=== PATIENT | male | born 1945 | race Caucasian/White ===

== ENCOUNTER 2019-03-01 12:48 | Inpatient (IN) | payer MEDICARE, OTHER, SELFPAY ==
[2019-03-01] VITALS (14 sets, daily range): BP systolic 82–122; BP diastolic 57–78; PULSE 60–105; RESP 12–22; TEMP 34.4–36.4; O2SAT 94–100; BMI 18.4
--- NOTE | ~2019-03-01 | XR_ITS ---
EXAMINATION: XR chest 2V DATE: 03/01/2019 13:35 INDICATION: Weakness and fall. TECHNIQUE: frontal and lateral views of the chest were obtained. COMPARISON: Chest radiograph dated 01/03/2007 FINDINGS: The lungs remain clear with no focal airspace opacities, pulmonary edema, pleural effusion or pneumot horax. The cardiomediastinal silhouette is normal. Tortuous and atherosclerotic thoracic aorta. Moder ate thoracic spondylosis. Chronic mild anterior wedging of a few mid thoracic vertebral bodies. IMPRESSION: 1. No acute cardiopulmonary disease. Reviewed, dictated and finalized at location A. EL OPERATOR
--- NOTE | ~2019-03-01 | XR_ITS ---
EXAMINATION: XR barium swallow modified DATE: 03/04/2019 10:33 INDICATION: Dysphagia. TECHNIQUE: Modified barium esophagram was performed by myself to administered fluoroscopy, in conjun ction with speech pathologist who administered barium in varying consistencies as per speech patholog ist documentation. This was recorded on tape. A single fluoroscopic spot image was recorded. The DA P for this procedure was 1.862 Gycm2. Fluoroscopy exposure time was 3.4 minutes. FINDINGS: Oral stage: Adequate function. Pharyngeal phase: Adequate function. Laryngeal penetration: X1. Aspiration: None. Laryngeal sensitivity: Absent. IMPRESSION: One episode of laryngeal penetration. Please refer to speech pathologist findings and sp ecific feeding recommendations. Reviewed, dictated and finalized at location A. CUTTER APPRENTICE IMPRESSION: One episode of laryngeal penetration. Please refer to speech patho logist findings and specific feeding recommendations.
--- NOTE | ~2019-03-01 | CT_ITS ---
EXAMINATION: CT brain wo con INDICATION: Transient alteration of awareness COMPARISON: None TECHNIQUE: Standard unenhanced head CT. The dose-length product (DLP) was 681.00 mGy-cm. The mA was a djusted according to patient size. Iterative reconstruction technique was employed. FINDINGS: There is no acute intraparenchymal hemorrhage. No evidence of mass lesion. No evidence of a cute infarction. 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 There is moderate periventricular and subco rtical hypodensity probably related to small vessel ischemic disease. There is moderate prominence of the sulci and ventricles related to cerebral atrophy. Intracranial calcified cerebral atherosclerosi s is noted. There are no extra-axial collections. There is no mass effect or midline shift. The orbit s and soft tissues are unremarkable. The visualized sinuses and mastoid air cells are well aerated. IMPRESSION: 1. No acute intracranial abnormality. 2. Age related findings. Reviewed, dictated and finalized at location A. RONMENTAL EDUCATION SPECIALIST
--- NOTE | ~2019-03-01 | XR_ITS ---
EXAMINATION: XR fl Dobhoff insert/rad w img EXAM DATE: 03/04/2019 17:38 INDICATION: Dobbhoff tube insertion. TECHNIQUE: Fluoroscopy used during XR fl Dobhoff insert/rad w img performed by Dr. Brendan Mancilla MD. The total DAP for exam was 0.7 mGym2. FINDINGS: Dobhoff tube insertion was attempted through the left naris first, and then the right shabana s. Tip would into the airway rather than the esophagus in spite of trying different head positions, c hin down/elevated head, requesting patient to swallow while advancing at the level of the larynx. Att empts were made for about 25 minutes without success. Correlate with procedure note. IMPRESSION: Unsuccessful Dobbhoff tube insertion attempt. Reviewed, dictated and finalized at location A. STER ELECTRICAL CONTACTS
--- NOTE | ~2019-03-01 | XR_ITS ---
EXAMINATION: XR lumbar spine 2-3V, XR thoracic spine 3V DATE: 03/01/2019 13:35 INDICATION: Fall and weakness. TECHNIQUE: 1. AP, lateral and lateral swimmers views of the thoracic spine were obtained. 2. AP and lateral views of the lumbar spine and cone-down lateral view of the lumbosacral junction we re obtained. COMPARISON: CT of the chest, abdomen and pelvis dated 02/13/2017 FINDINGS: Thoracic spine: Unchanged thoracic kyphosis with chronic compression fractures with <20% anterior vertebral body heig ht loss at T7, T8 and T9. Remaining vertebral body heights are normal. Stable appearance of multileve l disc height loss throughout the thoracic spine, mild in the upper thoracic spine and moderate with moderate-sized endplate osteophytes in the lower thoracic spine. No fracture identified. Paravertebra l soft tissues and visualized lungs are unremarkable. Cardiomediastinal silhouette is normal. Lumbar spine: Unchanged 5 mm anterolisthesis L4 on L5. Vertebral body heights are normal. Mild disc height loss at L1-L2 and L3-L4, moderate disc height loss at L4-L5 and moderate to severe disc height loss at L5-S1. Severe disc height loss at L4-L5 and L5-S1 and mild to moderate disc height loss more cephalad lumba r spine. Sacral arches are intact. Mild joint space narrowing at the bilateral sacroiliac joints. No fracture identified. IMPRESSION: Mild to severe thoracolumbar spondylosis with stable appearance of a few lower thoracic mild compress ion fractures. No evident acute osseous abnormality. Reviewed, dictated and finalized at location A. ILLERY WORKER IMPRESSION: Mild to severe thoracolumbar spondylosis with stable appearance of a few lower thoracic mild compression fractures. No evident acute osseous abnormality.
--- NOTE | ~2019-03-01 | US_ITS ---
EXAMINATION: US abdomen complete EXAM DATE: 03/05/2019 15:15 INDICATION: Thrombocytopenia, elevated bilirubin. TECHNIQUE: Multiple grayscale and Doppler images of the complete abdomen were obtained (by a technolo gist who performed the scan) and subsequently reviewed. There is no prior study for comparison. FINDINGS: There is abdominal aortic ectasia, and mild aneurysmal dilation up to 3.0 cm. Visualized portion IVC is patent. The pancreas was not visualized. Notation made that portions of left liver lobe were not well-visualized. The liver has normal echogen icity and contour. There are no focal liver lesions identified. There is no evidence of intrahepat ic biliary duct dilation. Portal venous flow was seen in the hepatopedal, normal direction and has n ormal Doppler waveform. Common bile duct measures 6 mm, which is upper limits of normal normal. Gallbladder is moderately dis tended with borderline wall thickness of 2.8 mm. There is calcified cholelithiasis and echogenic debr is within the gallbladder. There is also, tail artifact, gallbladder adenomyomatosis. No pericholecys tic fluid. Technologist performing exam reports patient did not demonstrate sonographic Gao's sig n. Please note that this sign is less reliable in patients who have received pain medication. Right kidney: There is normal contour and echogenicity. It measures 9.1 x 4.3 x 4.8 centimeters. T here are no focal renal lesions identified. There is no hydronephrosis. Left kidney: There is normal contour and echogenicity. It measures 9.1 x 4.2 x 4.5 centimeters. Th ere are no focal renal lesions identified. There is no hydronephrosis. The spleen measures 10.3 centimeters and is morphologically normal. IMPRESSION: 1. 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 2. Gallbladder debris, cholelithiasis, adenomyomatosis. 3. Common bile duct upper limits of normal. 4. Mild bilateral renal atrophy. Reviewed, dictated and finalized at location A. TH MANAGEMENT CONSULTANT
--- NOTE | ~2019-03-01 | CT_ITS ---
EXAMINATION: CT cervical spine wo con DATE: 03/01/2019 13:24 INDICATION: Pain after fall TECHNIQUE: Computed tomography (CT) of the cervical spine was performed without intravenous contrast. The dose-length product (DLP) was 263.56 mGy-cm. Automated exposure control and iterative reconstruc tion technique were employed. COMPARISON: None FINDINGS: There is 1 mm retrolisthesis of C3 on C4 and 2 mm of anterolisthesis of C7 on T1. There are near complete loss of intervertebral disc space height at C5-6 and C6-7 and moderate loss of disc sp jorden height at C3-4 and C7-T1. The odontoid is intact. There is severe multilevel facet and uncoverteb ral joint osteoarthritis. IMPRESSION: 1. Severe cervical spondylosis without acute findings. Reviewed, dictated and finalized at location A. WARE SECURITY ARCHITECT
--- NOTE | ~2019-03-01 | XR_ITS ---
EXAMINATION: XR pelvis 1-2V DATE: 03/01/2019 13:35 INDICATION: Fall. Found down and unresponsive. TECHNIQUE: An anteroposterior view of the pelvis was obtained. COMPARISON: None. FINDINGS: Alignment is normal. No fracture. Mild left hip osteoarthritis. Right hip joint space appears relativ sita preserved. Severe lower lumbar facet osteoarthritis. Sacral arches appear intact. IMPRESSION: 1. Degenerative skeletal changes most severe at the lower lumbar facet joints. No acute osseous abnor malities. Reviewed, dictated and finalized at location A. LEY OPERATOR IMPRESSION: 1. Degenerative skeletal changes most severe at the lower lumbar facet joints. No acute osseous abnormalities.
--- NOTE | ~2019-03-01 | XR_ITS ---
EXAMINATION: XR abdomen NG/feed tube insert INDICATION: Nasogastric tube placement TECHNIQUE: Portable AP KUB-NG at 1239 hours COMPARISON: None available FINDINGS: There is a partially imaged nasogastric tube which appears to coil in the pharynx. A small amount of enteric contrast material is seen in the stomach from earlier modified esophagram. The lung s are clear. The bowel gas pattern is normal. Severe thoracic spondylosis is noted. IMPRESSION: 1. Nasogastric tube coiling in the pharynx. Reviewed, dictated and finalized at location A. GEMENT ASSISTANT
--- NOTE | 2019-03-01 12:56 | ED.WEAKNESS ---
HPI - Weakness General Chief complaint: Weakness Stated complaint: weakness Time Seen by Provider: 03/01/19 12:56 Source: patient and EMS Mode of arrival: EMS Limitations: no limitations History of Present Illness HPI Narrative: A 73 y/o male presents to the ED, via EMS, with c/o home alone next to bed unresponsive sternal run 24 hours been there dry blood throughout house, skin tears falls ofter last dr year ago states no PMhx Related Data Allergies Allergy/AdvReac Type Severity Reaction Status Date / Time No Known Allergies Allergy Unknown Verified 03/13/18 12:47 Course Vital Signs Vital signs: Vital Signs Pulse Rate 73 03/01/19 12:47 Respiratory Rate 22 H 03/01/19 12:47 Blood Pressure 82/57 L 03/01/19 12:47 Pulse Oximetry 100 03/01/19 12:47 Pulse Rate 73 03/01/19 12:47 Respiratory Rate 22 H 03/01/19 12:47 Blood Pressure 82/57 L 03/01/19 12:47 Pulse Oximetry 100 03/01/19 12:47
--- NOTE | 2019-03-01 12:58 | ED.FALL ---
HPI - Fall General Chief Complaint: Weakness Stated Complaint: weakness Time Seen by Provider: 03/01/19 12:56 Source: patient and EMS Mode of arrival: EMS Limitations: no limitations History of Present Illness HPI Narrative: A 73 y/o male presents to the ED, via EMS, with c/o fall. Per EMS, the police were discharged to the patients home for a welfare check today. EMS notes that on arrival the patient was found unresponsive, but was awoken with a sternal rub. Pt adds that he fell and was unable to get up, and has been on the floor for the past 24 hours. EMS reports that there was blood throughout the house and the pt has multiple skin tears that are at various stages of healing. He reports HI and weakness. Pt has been weak for the past 2 days. He denies any pain or N/V. Pt lives alone and last saw his PCP 1 year ago. He states that he has no PMHx and is not on any medication, but on review of old records, he has a PMHx of cardiac catheterization, [place], hyperlipidemia, GERD, angioplasty, and cataracts. complaint: fall Onset (ago): day(s) (1) Fall witnessed: no Place fall occurred: home Prolonged down time: yes and hour(s) (24) Location of injury: head Associated symptoms (after fall): weakness and other (HI) Related Data Allergies Allergy/AdvReac Type Severity Reaction Status Date / Time No Known Allergies Allergy Unknown Verified 03/13/18 12:47 Review of Systems Review of Systems: All systems reviewed & are unremarkable except as noted in HPI and below Cardiovascular: Cardiovascular: Denies chest pain Gastrointestinal: Gastrointestinal: Denies abdominal pain, Denies nausea and Denies vomiting Musculoskeletal: Musculoskeletal: Denies back pain, Denies myalgias, Denies arthralgias and Denies neck pain Neurologic: Reports weakness and Reports other (HI) [facility] Past Medical History Medical History (Updated 03/01/19 @ 17:38 by Brandyn Glez MD) Cataracts, bilateral GERD (gastroesophageal reflux disease) Heart attack Hyperlipidemia Surgical History Surgical History (Updated 03/01/19 @ 13:28 by Sheree Becerra) History of angioplasty History of cardiac catheterization History of cataract surgery Social History Social History (Updated 03/01/19 @ 13:28 by Sheree Becerra) Smoking status: Never smoker Exam Narrative: Exam Narrative: General appearance: Well-developed, malnourished, ill looking, no family member at the bedside Skin: Normal color, multiple skin tear and abrasion and bruises, cats and dogs hair attached to the wounds Head: Normocephalic, nontraumatic Eyes: Clear conjunctiva ENT: Oropharynx extremely dry l, ears normal, nose normal Neck: Supple, nontender Chest and respiratory: Airway patent, no respiratory distress, no accessory muscle use Heart: Regular rate/rhythm Abdomen: Soft, nontender, no organomegaly, quiet bowel sounds Vascular: Normal peripheral pulses, normal capillary refill. Musculoskeletal: Normal range of motion, diffuse back tenderness Neurologic: Alert and oriented ?3, STRAIGHT TRUCK DRIVER is normal as tested, no gross motor deficit Course Course Emergency Course: Improving Consultations Consultation #1: Discussed case with the APARTMENT COMMUNITY ASSISTANT MANAGER for the hospitalist, Shefali Suggs. They accept the patient. Date: 03/01/19 Time: 15:49 Vital Signs Vital signs: Vital Signs Pulse Rate 73 03/01/19 12:47 Respiratory Rate 22 H 03/01/19 12:47 Blood Pressure 82/57 L 03/01/19 12:47 Pulse Oximetry 100 03/01/19 12:47 Temperature 36.3 C L 03/01/19 15:55 Pulse Rate 67 03/01/19 16:53 Respiratory Rate 16 03/01/19 16:53 Blood Pressure 102/70 03/01/19 16:53 Pulse Oximetry 100 03/01/19 16:53 MDM - Fall MDM Narr
--- NOTE | 2019-03-01 13:00 | PC.NURSE ---
Patient given warm blankets, given bath due to fecal matter covering his legs. Patient resting in bed.
--- NOTE | 2019-03-01 13:04 | ECG_ITS ---
Measurements Intervals [place] Rate: 70 P: IA: 0 QRS: -44 QRSD: 114 T: 52 QT: 423 QTc: 459 Interpretive Statements PROBABLY SINUS RHYTHM (SIGNIFICANT BASELINE ARTIFACT) INTRAVENTRICULAR CONDUCTION DELAY EARLY PRECORDIAL R/S TRANSITION INFERIOR INFARCT, AGE INDETERMINATE BASELINE ARTIFACT- I, II, III, AVR, AVL, AVF, V1-V6 ABNORMAL ECG Electronically Signed On 03-01-2019 13:16:49 COMMUNITY HEALTH OUTREACH WORKER by Ahmet Hedrick D.O.
[2019-03-01] MEDS: SODIUM CHLORIDE 0.9% IV 1,000 ML 1000 ML (13:38)
[2019-03-01 13:41] LABS: Alveolar/Arterial O2 Gradient 21.1 mmHg; Base Excess ABG -7.6 mEq/l (+/-2.0); Fractional Inspired Oxygen 21 %; Oxygen Content ABG 15.9 %vol (16.0-22.0); Oxygen Saturation ABG 98.3 % (95.0-100.0); Oxyhemoglobin 96.5 % THb (90.0-100.0); PO2 ABG 105.3 mmHg (80.0-100.0); PO2 FiO2 Ratio Arterial Blood 5.01 %; Total Hemoglobin 11.6 g/dL (12.0-18.0); pH ABG 7.473 (7.350-7.450)
[2019-03-01 13:44] LABS: Device ROOM AIR; Modified Allen's Test Pass; PCO2 ABG 19.5 mmHg (35.0-45.0); Site Drawn RIGHT RADIAL
--- NOTE | 2019-03-01 13:47 | PCRCNOTE ---
[facility]BS DELAYED DUE TO PT IN CAT SCAN
[2019-03-01 14:14] LABS: Basophils Percent Auto 0.1 % (0.2-1.2); Hematocrit 31.4 % (42.0-52.0); Hemoglobin 11.6 g/dL (14.0-18.0); Immature Granulocyte Absolute 0.04 K/mm3 (0.00-0.031); Immature Granulocyte Percent A 0.5 % (0-0.5); Lymphocytes Absolute Auto 1.11 K/mm3 (0.9-3.2); Lymphocytes Percent Auto 14.3 % (18.3-44.2); Mean Corpuscular HGB Conc 36.9 g/dl (32-36); Mean Corpuscular Hemoglobin 34.9 pg (26-34); Mean Corpuscular Volume 94.6 fl (80-100); Mean Platelet Volume 10.4 fl (7.4-10.4); Monocytes Absolute Auto 0.6 K/mm3 (0.1-0.6); Monocytes Percent Auto 7.2 % (2.6-8.5); Neutrophils Absolute Auto 6.1 K/mm3 (1.3-6.7); Neutrophils Percent Auto 77.9 % (45.5-73.1); Nucleated Red Blood Cells Perc 0.4 % (0.0-0.2); Platelet Count Result 81 k/mm3 (150-375); Red Blood Count 3.32 M/mm3 (4.6-6.20); Red Cell Distribution Width 13.5 % (11.5-14.5); White Blood Count 7.8 K/mm3 (4.5-10.0)
[2019-03-01 14:23] LABS: INR 1.3
[2019-03-01 14:31] LABS: Alanine Aminotransferase 39 U/L (4-50); Albumin Level 4.5 g/dL (3.5-5.1); Alkaline Phosphatase 61 U/L (38-126); Aspartate Amino Transferase 111 U/L (17-59); Bilirubin,Total 3.8 mg/dL (0.2-1.3); Blood Urea Nitrogen 42 mg/dL (9-20); CRP 5.5 mg/dL (<1.0); Calcium 12.1 mg/dL (8.4-10.2); Carbon Dioxide 14 mmol/L (22-30); Chloride 104 mmol/L (98-107); Estimated Glomerular Filt Rate 39; Glucose 94 mg/dL (75-110); Potassium 3.5 mmol/L (3.4-5.0); Sodium 136 mmol/L (137-145)
[2019-03-01 14:32] LABS: Add Urine Microscopic? YES; Appearance Urine Clear (Clear); Bacteria Urine Trace /hpf; Bilirubin Urine Negative (Negative); Blood Urine 1+ (Negative); Color Urine Amber (Yellow); Glucose Urine UA Negative (Negative); Ketones Urine Negative (Negative); Leukocyte Esterase Ur Negative LEU/UL (Negative); Mucus Urine Rare /lpf; Nitrate Urine Negative (Negative); Protein Urine 1+ mg/dL (Negative); Specific Grav Ur 1.024 (1.001-1.035); WBC Urine 0-3 /hpf
[2019-03-01 14:38] LABS: Lactic Acid Reflex 2.9 mmol/L (0.7-2.1)
[2019-03-01 14:46] LABS: Creatine Kinase 2756 U/L (55-170)
[2019-03-01 15:12] LABS: Thyroid Stimulating Hormone > 100.000 uIU/mL (0.465-4.680)
--- NOTE | 2019-03-01 16:02 | PC.NURSE ---
Patient repositioned, additional warm blankets provided.
--- NOTE | 2019-03-01 17:00 | PC.NURSE ---
MD aware of patient's temperature despite warm blankets, mamie abernathy initiated.
[2019-03-01 17:26] LABS: Reflex Lactic Acid Yes or No Add Lactic
--- NOTE | 2019-03-01 18:25 | PC.NURSE ---
GARLAND Sifuentes updated on pt's core temp of 95.2 rectally. Will hold pt in ED until temp 96.5 or higher.
--- NOTE | 2019-03-01 18:48 | PC.NURSE ---
lab dept notified to draw repeat lactic acid. informed that lab will draw once in hospital room
--- NOTE | 2019-03-01 19:00 | PC.NURSE ---
report to lianne mccloud
[2019-03-01 20:08] LABS: Lactic Acid 1.5 mmol/L (0.7-2.1)
[2019-03-01] MEDS: SODIUM CHLORIDE 0.9% IV 1,000 ML 125 ML IV CONT (21:23)
--- NOTE | 2019-03-01 22:48 | ADMGEN ---
This patient, Carlos Sol, was admitted to IMU Room 232-01. Patient/family oriented to hospital policies and general routines including ID bracelet, bed and alarms, visiting hours, pain management, procedures, bathroom and other care routines, personal items, smoking policy, room service/diet, and visiting hours. Valuables list has been completed. Information on how to activate the Rapid Response Team has been discussed. Patient/Family are encouraged to report perceived risks to care and to ask questions if they do not understand what they are told or what they should do.
--- NOTE | 2019-03-01 23:29 | PM.IMHP ---
H&P: HPI History of Present Illness Chief complaint: Rhabdomyolysis, hypotension, dehydration Narrative: Carlos Sol is a 73 year old male lives home alone. The please were sent to his house for wellness check. They found the patient on the the floor of his home. They noted that there was blood all over his house and that he had multiple fractions to his arms. The patient was very confused initially when he came to the emergency room but is now starting to talk more. Patient does not recall what happened prior to today. Initially the please found that the patient was unresponsive but then woke up with a sternal rub. The patient saw his primary care doctor approximately 1 year ago. No meds were listed for his home medications. Date of service 03/01/2019. Hemoglobin is 11.6 and hematocrit 31.4.Patient's temperature was initially 35.6 and he was placed on a Teodora Hugger. His temperature is now 36.4. Blood pressure 117/75. 1.7 with a GFR of 39. Total creatinine kinase 2756. C reactive protein 5.5. TSH was greater than 100. No reflux T3 or T4 was noted. I spoke with Dr. lema who suggested we repeated. Thoracic spine, lumbar spine, pelvic x-ray, cervical spine CT all negative for fractures. Head CT was negative. IV fluids were started. Review of Systems Review of Systems: Narrative: Patient is answering some questions but is very hard of hearing. His vision is poor as well. He states he usually wears glasses but he can't see anything without home and they are not with him now. Is answering some questions but otherwise is very vague All systems reviewed & are unremarkable except as noted in HPI and below Constitutional: Constitutional: Reports as per HPI and Reports no additional constitutional complaints Comments: Very weak. Eyes: Eyes: Reports as per HPI and Reports no additional eye complaints ENT: Reports system reviewed and no additional complaints, except as documented and Reports Normal hearing present Cardiovascular: Cardiovascular: Reports no additional cardiovascular complaints Respiratory: Respiratory: Reports no additional respiratory complaints and Reports no additional respiratory complaints Gastrointestinal: Gastrointestinal: Reports as per HPI and Reports no additional gastrointestinal complaints Musculoskeletal: Musculoskeletal: Reports no additional musculoskeletal complaints Integumentary/Breasts: Skin/Breast: Reports system reviewed and no additional complaints, except as docu and Reports as per HPI Neurologic: Reports system reviewed and no additional complaints, except as documented, Reports as per HPI and Reports Normal hearing present Psychiatric: Psychiatric: Reports no additional psychiatric complaints and Reports as per HPI Endocrine: Endocrine: Reports no additional endocrine complaints Hematologic/Lymphatic: Hematologic/Lymphatic: Reports no additional hematologic/lymphatic complaints Allergic/Immunologic: Allergic/Immunologic: Reports no additional allergic/immunologic complaints [facility] Past Medical History Medical History Cataracts, bilateral GERD (gastroesophageal reflux disease) Heart attack Hyperlipidemia Surgical History Surgical History History of angioplasty History of cardiac catheterization History of cataract surgery Family History Family History (Updated 03/01/19 @ 23:38 by Shefali Suggs NP) Mother Cancer Father Liver cancer Other Unknown family medical history Social History Social History (Updated 03/01/19 @ 23:39 by Shefali Suggs NP) Social History: The patient tells me that he is a DNR. The nurse checked with the supervisor contact and service clerks who stated the patient is a DNR. The patient tells me that he retired from the [employer] in that he has 3 children. He tells me that he is has . Smoking status: Former smoker Tobacco type: cigarett
[2019-03-02] VITALS (10 sets, daily range): BP systolic 101–130; BP diastolic 55–82; PULSE 51–82; RESP 18–22; TEMP 36.1–36.6; O2SAT 94–100; BMI 18.4
[2019-03-02 05:01] LABS: Basophils Percent Auto 0.3 % (0.2-1.2); Eosinophils Percent Auto 0.5 % (0-4.4); Hematocrit 28.6 % (42.0-52.0); Hemoglobin 10.4 g/dL (14.0-18.0); Immature Granulocyte Absolute 0.02 K/mm3 (0.00-0.031); Immature Granulocyte Percent A 0.3 % (0-0.5); Immature Platelet Fraction Pct 2.5 % (0.9-11.2); Lymphocytes Absolute Auto 1.07 K/mm3 (0.9-3.2); Lymphocytes Percent Auto 17.4 % (18.3-44.2); Mean Corpuscular HGB Conc 36.4 g/dl (32-36); Mean Corpuscular Volume 96.3 fl (80-100); Mean Platelet Volume 10.8 fl (7.4-10.4); Monocytes Absolute Auto 0.3 K/mm3 (0.1-0.6); Monocytes Percent Auto 5.4 % (2.6-8.5); Neutrophils Absolute Auto 4.7 K/mm3 (1.3-6.7); Neutrophils Percent Auto 76.1 % (45.5-73.1); Nucleated Red Blood Cells Perc 0.5 % (0.0-0.2); Platelet Count Result 72 k/mm3 (150-375); Red Blood Count 2.97 M/mm3 (4.6-6.20); Red Cell Distribution Width 13.5 % (11.5-14.5); White Blood Count 6.2 K/mm3 (4.5-10.0)
[2019-03-02 05:15] LABS: Alanine Aminotransferase 37 U/L (4-50); Albumin Level 4.1 g/dL (3.5-5.1); Alkaline Phosphatase 51 U/L (38-126); Aspartate Amino Transferase 94 U/L (17-59); Bilirubin,Total 3.5 mg/dL (0.2-1.3); Blood Urea Nitrogen 42 mg/dL (9-20); Calcium 11.3 mg/dL (8.4-10.2); Carbon Dioxide 14 mmol/L (22-30); Chloride 107 mmol/L (98-107); Creatine Kinase 1405 U/L (55-170); Estimated CRCL calculation 36 ml/min; Estimated Glomerular Filt Rate 46; Glucose 78 mg/dL (75-110); Magnesium 2.2 mg/dL (1.6-2.3); Potassium 3.2 mmol/L (3.4-5.0); Sodium 136 mmol/L (137-145)
[2019-03-02] MEDS: SODIUM CHLORIDE 0.9% IV 1,000 ML 125 ML IV CONT ×3 (05:28→21:43)
[2019-03-02 06:25] LABS: Thyroid Stimulating Hormone Reflex > 100.000 uIU/mL (0.465-4.68)
[2019-03-02 06:50] LABS: Free T4 Free Thyroxine Reflex 0.12 ng/dL (0.78-2.19)
[2019-03-02 07:57] LABS: Glucose Point of Care 75 (65-105)
--- NOTE | 2019-03-02 14:23 | PCNSR ---
On 03/02/19, the student, Allie Montero, provided care and completed [facility] documentation on this patient. I have reviewed the student's documentation and agree with the findings.
--- NOTE | 2019-03-02 15:48 | PCPTNOTE ---
Attempted PT eval. Pt sleeping and unable to arouse. Will try again tomorrow.
--- NOTE | 2019-03-02 16:03 | PM.IMPN ---
Progress Note: A&P Assessment and Plan (1) Rhabdomyolysis: Qualifiers: Encounter type: subsequent encounter Rhabdomyolysis type: traumatic Qualified Code(s): T79.6XXD - Traumatic ischemia of muscle, subsequent encounter Code(s): M62.82 - Rhabdomyolysis Status: Acute Assessment and Plan: 03/02/19 16:03 Patient is 73-year-old male who lives home alone his neighbor had not seen him for a week and called police to check on him patient was found on floor confused there was some bleeding from his arm was not able to provide any review of symptom or history he was brought to the emergency department is found to have a rhabdomyolysis with elevated CK acute kidney disease and elevated TSH unfortunately patient is not able to provide any details his daughters are present who are not much in contact with the patient however his adult daughter who is the POA, patient is being hydrated will monitor CK level as well as kidney function patient will benefit from PT OT (2) Elevated TSH: Code(s): R79.89 - Other specified abnormal findings of blood chemistry Status: Acute Assessment and Plan: Patient TSH is over 100 there is no detail about his past history I have started the patient on low-dose or levothyroxine 25 mcg q.day will continue to monitor patient (3) Anemia: Code(s): D64.9 - Anemia, unspecified Status: Acute Assessment and Plan: Continue to monitor patient's H&H. (4) Adult failure to thrive: Code(s): R62.7 - Adult failure to thrive Status: Acute Assessment and Plan: Patient lives home alone and is a DNR. I will consult critical care nurse for possible placement. I will started PT OT evaluation. (5) Dehydration: Code(s): E86.0 - Dehydration Status: Acute Assessment and Plan: Patient's mucous membranes are dry. Continue with with good oral care and IV fluids. Recheck BUN and creatinine in the morning. Patient's creatinine is 1.7. Not sure where his baseline is. Patient lactic was 2 point now 1.5. (6) Hyperbilirubinemia: Code(s): E80.6 - Other disorders of bilirubin metabolism Status: Acute Assessment and Plan: To his rhabdomyolysis. Subjective Date/time seen: 03/02/19 16:03 Patient is 73-year-old male who lives home alone his neighbor had not seen him for a week and called police to check on him patient was found on floor confused there was some bleeding from his arm was not able to provide any review of symptom or history he was brought to the emergency department is found to have a rhabdomyolysis acute kidney disease and elevated TSH unfortunately patient is not able to provide any details his daughters are present who are not much in contact with the patient however his adult daughter who is the POA Review of Systems Review of Systems: ROS unobtainable: unobtainable due to mental condition Exam Narrative: Exam Narrative: Patient is elderly frail chronically ill malnourished Const: General: no acute distress and uncomfortable HENMT: General nose exam: Normal nares present Mouth: Yes moist mucous membranes Eyes: General: appearance normal, both eyes and all related structures Sclera: sclerae normal Neck: Neck: supple Resp: Other: Bilateral poor air entry with harsh breath sounds Cardio: Rate: regular rate Rhythm: regular rhythm GI: Auscultation: normal bowel sounds Skin: Other: Patient has several scabs on his arms Extrem: General: normal to inspection Psych: Other: Patient is quite confused Objective Data Vital Signs Vital Signs: Vital Signs - 24 hr 03/01/19 16:53 03/01/19 17:07 03/01/19 18:06 Temperature 94.0 F L 94.4 F L Pulse Rate 67 75 Respiratory Rate 16 22 H Blood Pressure 102/70 111/78 Pulse Oximetry 100 100 03/01/19 18:13 03/01/19 19:15 03/01/19 20:01 Temperature 95.2 F L 96.0 F L 95.9 F L Pulse Rate 64 74 Respiratory Rate 14 12 Blood Pressure 100/
[2019-03-03] VITALS: RESP 20
[2019-03-03 03:47] VITALS: BP 122/90; PULSE 78; RESP 22; TEMP 36.4; O2SAT 100
[2019-03-03 04:58] LABS: Hematocrit 28.8 % (42.0-52.0); Hemoglobin 10.4 g/dL (14.0-18.0); Immature Platelet Fraction Pct 1.7 % (0.9-11.2); Mean Corpuscular HGB Conc 36.1 g/dl (32-36); Mean Corpuscular Hemoglobin 34.9 pg (26-34); Mean Corpuscular Volume 96.6 fl (80-100); Mean Platelet Volume 10.4 fl (7.4-10.4); Platelet Count Result 64 k/mm3 (150-375); Red Blood Count 2.98 M/mm3 (4.6-6.20); Red Cell Distribution Width 13.9 % (11.5-14.5); White Blood Count 5.8 K/mm3 (4.5-10.0)
[2019-03-03 05:05] LABS: Alanine Aminotransferase 34 U/L (4-50); Albumin Level 3.9 g/dL (3.5-5.1); Alkaline Phosphatase 51 U/L (38-126); Aspartate Amino Transferase 81 U/L (17-59); Bilirubin,Total 3.6 mg/dL (0.2-1.3); Blood Urea Nitrogen 33 mg/dL (9-20); Calcium 10.7 mg/dL (8.4-10.2); Carbon Dioxide 14 mmol/L (22-30); Chloride 112 mmol/L (98-107); Creatine Kinase 870 U/L (55-170); Estimated CRCL calculation 42 ml/min; Estimated Glomerular Filt Rate 54; Glucose 77 mg/dL (75-110); Potassium 3.2 mmol/L (3.4-5.0); Sodium 139 mmol/L (137-145)
[2019-03-03] MEDS: SODIUM CHLORIDE 0.9% IV 1,000 ML 125 ML IV CONT (05:53)
[2019-03-03] MEDS: LEVOTHYROXINE SODIUM INJ 100 MCG/5 ML VIAL 12.5 MCG IV PUSH (05:53)
[2019-03-03 08:00] VITALS: BP 138/93; PULSE 68; RESP 26; TEMP 36; O2SAT 100
[2019-03-03] MEDS: DEXTROSE 50% 25 GM/50 ML SYRINGE IV PUSH (08:24)
[2019-03-03 09:24] LABS: Glucose Point of Care 83 (65-105)
[2019-03-03 10:41] VITALS: BP 101/88; PULSE 77; RESP 16; TEMP 35.5; O2SAT 89
[2019-03-03] MEDS: DEXTROSE 5%/0.9% SOD CHL 1,000 ML 125 ML IV CONT ×2 (10:45→19:24)
[2019-03-03 12:00] LABS: Glucose Point of Care 62 (65-105)
[2019-03-03 12:30] VITALS: BP 154/83; PULSE 56; RESP 22; TEMP 35.8; O2SAT 99
[2019-03-03 13:44] LABS: Glucose Point of Care 84 (65-105)
--- NOTE | 2019-03-03 15:28 | PM.IMPN ---
Progress Note: A&P Assessment and Plan (1) Rhabdomyolysis: Qualifiers: Encounter type: subsequent encounter Rhabdomyolysis type: traumatic Qualified Code(s): T79.6XXD - Traumatic ischemia of muscle, subsequent encounter Code(s): M62.82 - Rhabdomyolysis Status: Acute Assessment and Plan: Patient is 73-year-old male who lives home alone his neighbor had not seen him for a week and called police to check on him patient was found on floor confused there was some bleeding from his arm was not able to provide any review of symptom or history he was brought to the emergency department was found to have a rhabdomyolysis with elevated CK acute kidney disease and elevated TSH unfortunately patient is not able to provide any details, patient was started on low-dose levothyroxine patient is being hydrated his CK level is trending his kidney function is improving his still more awake today than he had been yesterday unable to provide any review of symptoms (2) Elevated TSH: Code(s): R79.89 - Other specified abnormal findings of blood chemistry Status: Acute Assessment and Plan: Patient TSH is over 100 there is no detail about his past history I have started the patient on low-dose or levothyroxine 25 mcg q.day will continue to monitor patient (3) Anemia: Code(s): D64.9 - Anemia, unspecified Status: Acute Assessment and Plan: Continue to monitor patient's H&H. (4) Adult failure to thrive: Code(s): R62.7 - Adult failure to thrive Status: Acute Assessment and Plan: Patient lives home alone and is a DNR. I will consult family day care worker for possible placement. I will started PT OT evaluation. (5) Dehydration: Code(s): E86.0 - Dehydration Status: Acute Assessment and Plan: Patient's mucous membranes are dry. Continue with with good oral care and IV fluids. Recheck BUN and creatinine in the morning. Patient's creatinine is 1.7. Not sure where his baseline is. Patient lactic was 2 point now 1.5. (6) Hyperbilirubinemia: Code(s): E80.6 - Other disorders of bilirubin metabolism Status: Acute Assessment and Plan: To his rhabdomyolysis. Subjective Date/time seen: 03/03/19 15:28 Patient is 73-year-old male who lives home alone his neighbor had not seen him for a week and called police to check on him patient was found on floor confused there was some bleeding from his arm was not able to provide any review of symptom or history he was brought to the emergency department was found to have a rhabdomyolysis with elevated CK acute kidney disease and elevated TSH unfortunately patient is not able to provide any details, patient was started on low-dose levothyroxine patient is being hydrated his CK level is trending his kidney function is improving his still more awake today than he had been yesterday unable to provide any review of symptoms Review of Systems Review of Systems: ROS unobtainable: unobtainable due to mental condition Exam Narrative: Exam Narrative: Patient is elderly frail chronically ill malnourished Const: General: cooperative, comfortable, no acute distress, alert, awake, Physically active, ill appearing, tired appearing and uncomfortable Nutritional Appearance: average body habitus and underweight Orientation/consciousness: oriented to person, oriented to place, oriented to time and patient oriented x3 Limitations: no limitations Other: Patient was aware that he has had [facility] HENMT: Head: normal to inspection, No palpable skull fracture present, normocephalic, atraumatic and abrasion Ears: other (Hard of hearing) General nose exam: Normal external nose present, Normal nares present and No nasal polyps present Mouth: Yes moist mucous membranes and Yes dry mucous membranes Throat: posterior oropharynx normal Eyes: General: appearance normal, both eyes and all related structures Alignment and Posit
[2019-03-03] MEDS: SILVERGEL (ELTA) 45 ML 1 APPLIC TOPICAL (16:34)
--- NOTE | 2019-03-03 17:11 | PC.NURSE ---
This patient, Carlos Sol, was received from [facility] on 03/03/19 at 1647. Personal belongings list checked and signed. Patient/family oriented to unit policies and routines. Report received from GARLAND Joy.
[2019-03-03 17:25] LABS: Glucose Point of Care 93 (65-105)
--- NOTE | 2019-03-03 17:38 | PC.NURSE ---
This patient, Carlos Sol, was transferred to [[id number] ] on 03/03/19 at 1739. Personal belongings sent with patient. Belongings list checked and signed with receiving [ ]. Report given to [ ]. Appropriate documentation sent with patient.
[2019-03-03 22:11] VITALS: BP 126/80; PULSE 72; RESP 16; TEMP 35.7; O2SAT 100
[2019-03-04 01:09] LABS: Glucose Point of Care 105 (65-105)
[2019-03-04] MEDS: DEXTROSE 5%/0.9% SOD CHL 1,000 ML 125 ML IV CONT ×2 (03:25→16:48)
[2019-03-04 05:45] LABS: Glucose Point of Care 128 (65-105)
[2019-03-04 05:49] VITALS: BP 121/78; PULSE 63; RESP 16; TEMP 35.6; O2SAT 100
[2019-03-04] MEDS: LEVOTHYROXINE SODIUM INJ 100 MCG/5 ML VIAL 12.5 MCG IV PUSH (06:16)
[2019-03-04 06:31] LABS: Alanine Aminotransferase 32 U/L (4-50); Albumin Level 3.6 g/dL (3.5-5.1); Alkaline Phosphatase 77 U/L (38-126); Aspartate Amino Transferase 71 U/L (17-59); Bilirubin,Total 3.3 mg/dL (0.2-1.3); Blood Urea Nitrogen 24 mg/dL (9-20); Calcium 10.3 mg/dL (8.4-10.2); Carbon Dioxide 10 mmol/L (22-30); Chloride 117 mmol/L (98-107); Creatine Kinase 569 U/L (55-170); Estimated CRCL calculation 53 ml/min; Estimated Glomerular Filt Rate > 60; Glucose 105 mg/dL (75-110); Potassium 2.9 mmol/L (3.4-5.0); Sodium 142 mmol/L (137-145)
[2019-03-04 07:40] LABS: Hematocrit 26.3 % (42.0-52.0); Hemoglobin 9.7 g/dL (14.0-18.0); Mean Corpuscular HGB Conc 36.9 g/dl (32-36); Mean Corpuscular Hemoglobin 34.6 pg (26-34); Mean Corpuscular Volume 93.9 fl (80-100); Mean Platelet Volume 9.7 fl (7.4-10.4); Platelet Count Result 48 k/mm3 (150-375); Red Cell Distribution Width 13.8 % (11.5-14.5); White Blood Count 10.3 K/mm3 (4.5-10.0)
[2019-03-04] MEDS: LIDOCAINE 5% PATCH 1 PATCH TRANSDERM (08:12)
--- NOTE | 2019-03-04 09:13 | PCOTNOTE ---
Refusal of OT evaluation this AM stating that he did not want to get up and did not want to do therapy. Pt encouraged to participate and educated on the benefits of getting out of bed and moving. Pt continued to refuse. Will attempt OT evaluation at later time.
--- NOTE | 2019-03-04 09:22 | PCSTNOTE ---
Please refer to the Bedside Swallow Evaluation in the EMR.
--- NOTE | 2019-03-04 10:59 | PCSTNOTE ---
Please refer to the Modified Barium Swallow Evaluation in the EMR.
--- NOTE | 2019-03-04 12:55 | PC.NURSE ---
Second [place] sump attempted to be inserted with no success. Patient not tolerating insertion and agitated. Pierre Dillon RN notified and she will make Dr. Mancilla aware.
--- NOTE | 2019-03-04 13:37 | PCDIET ---
Nutrition Follow-Up Complete: Inadequate energy intake related to no current diet order as evidenced by BMI of 18.5 (75% IBW) and medical dx of adult failure to thrive . Patient will meet nutritional needs upon advancement of diet. Goal: Diet order advanced to TF in order to meet patient's nutritional needs Nutrition recommendation: Recommend Jevity 1.2, starting at 20ml/hr, slowly increasing by 10mL/hr every 8 hours, as tolerated, in order to meet goal rate of 80ml/hr (providing 2,112kcals, 97g pro, and 1420ml free water over 22 hours/day). Agree with standard of 30ml water flushes but once goal rate met, recommend reducing IV fluids so that water flushes can be administered 100ml every 4hrs. Will monitor electrolytes closely, as patient may be at risk for refeeding, given borderline BMI and having not eaten in several days. Last recorded weight is 67 kg. Bowel Motility: none recorded Labs Reviewed:Na (142), K (2.9), Cr (1.0), Glu (105) Meds Noted: Levothyroxine, D5NS @ 125mL/hr Additional Notes: s/p KCl replacement. Failed MBS noted; enteral feedings appropriate Goal rate of 80ml, starting at 10ml Closely monitor labs and residuals, will follow up every Thursday/Thursday.
[2019-03-04 14:00] VITALS: BP 104/72; PULSE 65; RESP 16; TEMP 37; O2SAT 100
--- NOTE | 2019-03-04 14:09 | PCNSR ---
On 03/04/19, the student, Allie Montero, provided care and completed [employer] documentation on this patient. I have reviewed the student's documentation and agree with the findings.
--- NOTE | 2019-03-04 14:13 | P.CDI_ITS ---
CDI Query Clarification Request -Acute kidney disease has been documented. -03/01 BUN 42, creatinine 1.7, GFR 39 -03/04 BUN 24, creatinine 1.0, GRF >60 -Acute kidney disease codes to a nonspecific kidney disorder. Please further clarify/specify diagnosis: * Acute renal failure * Chronic renal failure * Acute on chronic renal failure * Other * Unable to determine <Riana Ley RN - Last Filed: 03/04/19 14:19>
--- NOTE | 2019-03-04 14:13 | WPDCDIQUERY2 ---
CDI Query Clarification Request -Acute kidney disease has been documented. -03/01 BUN 42, creatinine 1.7, GFR 39 -03/04 BUN 24, creatinine 1.0, GRF >60 -Acute kidney disease codes to a nonspecific kidney disorder. Please further clarify/specify diagnosis: Acute renal failure Chronic renal failure Acute on chronic renal failure Other Unable to determine <Riana Ley RN - Last Filed: 03/04/19 14:19>
--- NOTE | 2019-03-04 14:32 | PM.IMPN ---
Progress Note: A&P Assessment and Plan (1) Rhabdomyolysis: Qualifiers: Encounter type: subsequent encounter Rhabdomyolysis type: traumatic Qualified Code(s): T79.6XXD - Traumatic ischemia of muscle, subsequent encounter Code(s): M62.82 - Rhabdomyolysis Status: Acute Assessment and Plan: Patient is 73-year-old male who lives home alone his neighbor had not seen him for a week and called police to check on him patient was found on floor confused there was some bleeding from his arm was not able to provide any review of symptom or history he was brought to the emergency department was found to have a rhabdomyolysis with elevated CK acute kidney disease and elevated TSH unfortunately patient is not able to provide any details, patient was started on low-dose levothyroxine patient is being hydrated his CK level is trending his kidney function is improving his still more awake today than he had been yesterday unable to provide any review of symptoms will continue to hydrate the patient will start the patient on G-tube feeding once the NG tube is inserted. (2) Elevated TSH: Code(s): R79.89 - Other specified abnormal findings of blood chemistry Status: Acute Assessment and Plan: Patient TSH is over 100 there is no detail about his past history I have started the patient on low-dose or levothyroxine 25 mcg q.day will continue to monitor patient (3) Anemia: Code(s): D64.9 - Anemia, unspecified Status: Acute Assessment and Plan: Continue to monitor patient's H&H. (4) Adult failure to thrive: Code(s): R62.7 - Adult failure to thrive Status: Acute Assessment and Plan: Patient lives home alone and is a DNR. I will consult care team coordinator scheduler for possible placement. I will started PT OT evaluation. (5) Dehydration: Code(s): E86.0 - Dehydration Status: Acute Assessment and Plan: Patient's mucous membranes are dry. Continue with with good oral care and IV fluids. Recheck BUN and creatinine in the morning. Patient's creatinine is 1.7. Not sure where his baseline is. Patient lactic was 2 point now 1.5. (6) Hyperbilirubinemia: Code(s): E80.6 - Other disorders of bilirubin metabolism Status: Acute Assessment and Plan: To his rhabdomyolysis. Subjective Date/time seen: Patient is 73-year-old male who lives home alone his neighbor had not seen him for a week and called police to check on him patient was found on floor confused there was some bleeding from his arm was not able to provide any review of symptom or history he was brought to the emergency department was found to have a rhabdomyolysis with elevated CK acute kidney disease and elevated TSH unfortunately patient is not able to provide any details, patient was started on low-dose levothyroxine patient is being hydrated his CK level is trending his kidney function is improving his still more awake today than he had been yesterday unable to provide any review of symptoms Review of Systems Review of Systems: ROS unobtainable: unobtainable due to mental condition Exam Narrative: Exam Narrative: Elderly frail confused Const: General: comfortable and no acute distress HENMT: General nose exam: Normal nares present Mouth: Yes moist mucous membranes Eyes: General: appearance normal, both eyes and all related structures Sclera: sclerae normal Neck: Neck: supple Resp: Effort & Inspection: normal respiratory effort Auscultation: clear to auscultation bilaterally Cardio: Rate: regular rate Rhythm: regular rhythm GI: Auscultation: normal bowel sounds Skin: General skin exam: normal color and no rashes or lesions noted Neuro: Speech: normal speech Sensory Exam: normal sensation Extrem: General: normal to inspection Psych: Other: Patient is confused nonverbal Objective Data Vital Signs Vital Signs: Vital Signs - 24 hr 03/03/19 22:11 03/04/19 05:49
[2019-03-04 15:05] LABS: Glucose Point of Care 120 (65-105)
[2019-03-04 19:10] LABS: Basophils Percent Auto 0.2 % (0.2-1.2); Eosinophils Percent Auto 0.1 % (0-4.4); Hematocrit 26.7 % (42.0-52.0); Hemoglobin 9.5 g/dL (14.0-18.0); Immature Granulocyte Absolute 0.05 K/mm3 (0.00-0.031); Immature Granulocyte Percent A 0.5 % (0-0.5); Immature Platelet Fraction Pct 1.9 % (0.9-11.2); Lymphocytes Absolute Auto 0.58 K/mm3 (0.9-3.2); Lymphocytes Percent Auto 6.3 % (18.3-44.2); Mean Corpuscular HGB Conc 35.6 g/dl (32-36); Mean Corpuscular Hemoglobin 34.2 pg (26-34); Mean Platelet Volume 9.9 fl (7.4-10.4); Monocytes Absolute Auto 0.3 K/mm3 (0.1-0.6); Monocytes Percent Auto 2.8 % (2.6-8.5); Neutrophils Absolute Auto 8.3 K/mm3 (1.3-6.7); Neutrophils Percent Auto 90.1 % (45.5-73.1); Nucleated Red Blood Cells Perc 0.2 % (0.0-0.2); Platelet Count Result 47 k/mm3 (150-375); Red Blood Count 2.78 M/mm3 (4.6-6.20); Red Cell Distribution Width 14.1 % (11.5-14.5); White Blood Count 9.3 K/mm3 (4.5-10.0)
[2019-03-04 19:18] LABS: Partial Thromboplastin Time 40.4 SECONDS (22.3-36.8)
[2019-03-04 19:19] LABS: Alanine Aminotransferase 31 U/L (4-50); Albumin Level 3.4 g/dL (3.5-5.1); Alkaline Phosphatase 56 U/L (38-126); Aspartate Amino Transferase 55 U/L (17-59); Bilirubin,Total 3.5 mg/dL (0.2-1.3); Blood Urea Nitrogen 21 mg/dL (9-20); Calcium 10.4 mg/dL (8.4-10.2); Carbon Dioxide 13 mmol/L (22-30); Chloride 116 mmol/L (98-107); Estimated CRCL calculation 49 ml/min; Estimated Glomerular Filt Rate > 60; Glucose 101 mg/dL (75-110); Potassium 2.9 mmol/L (3.4-5.0); Sodium 144 mmol/L (137-145)
[2019-03-04 19:27] LABS: Transferrin 164 mg/dL (206-381)
[2019-03-04 19:30] LABS: Glucose Point of Care 98 (65-105)
[2019-03-04 22:00] VITALS: BP 116/81; PULSE 68; RESP 18; TEMP 36.8; O2SAT 100
[2019-03-04] MEDS: AMINO ACIDS 4.25%/D5W/LYTES/CA 2,000 ML 100 ML IV CONT (22:06)
[2019-03-04 23:49] LABS: Glucose Point of Care 122 (65-105)
[2019-03-05] MEDS: LEVOTHYROXINE SODIUM INJ 100 MCG/5 ML VIAL 12.5 MCG IV PUSH (05:33)
[2019-03-05 05:52] VITALS: BP 118/83; PULSE 75; RESP 16; TEMP 36.7; O2SAT 100
[2019-03-05 06:38] LABS: Hematocrit 27.8 % (42.0-52.0); Hemoglobin 9.8 g/dL (14.0-18.0); Mean Corpuscular HGB Conc 35.3 g/dl (32-36); Mean Corpuscular Hemoglobin 34.6 pg (26-34); Mean Corpuscular Volume 98.2 fl (80-100); Mean Platelet Volume 10.2 fl (7.4-10.4); Platelet Count Result 40 k/mm3 (150-375); Red Blood Count 2.83 M/mm3 (4.6-6.20); Red Cell Distribution Width 14.3 % (11.5-14.5); White Blood Count 9.3 K/mm3 (4.5-10.0)
[2019-03-05 07:04] LABS: Glucose Point of Care 106 (65-105)
[2019-03-05 07:53] LABS: Albumin Level 3.2 g/dL (3.5-5.1); Alkaline Phosphatase 45 U/L (38-126); Aspartate Amino Transferase 51 U/L (17-59); Bilirubin,Total 2.6 mg/dL (0.2-1.3); Blood Urea Nitrogen 23 mg/dL (9-20); Carbon Dioxide 13 mmol/L (22-30); Chloride 115 mmol/L (98-107); Creatine Kinase 304 U/L (55-170); Estimated CRCL calculation 66 ml/min; Estimated Glomerular Filt Rate > 60; Glucose 88 mg/dL (75-110); Phosphorus 1.9 mg/dL (2.5-4.5); Potassium 3.2 mmol/L (3.4-5.0); Sodium 142 mmol/L (137-145)
[2019-03-05 08:17] LABS: Alanine Aminotransferase 37 U/L (4-50)
[2019-03-05] MEDS: LIDOCAINE 5% PATCH 1 PATCH TRANSDERM (11:09)
--- NOTE | 2019-03-05 11:59 | WPDGICN ---
Assessment and Plan Assessment and plan (1) Dysphagia: Qualifiers: Dysphagia type: unspecified Qualified Code(s): R13.10 - Dysphagia, unspecified Code(s): R13.10 - Dysphagia, unspecified Status: Acute Assessment and Plan: probably from underlying neurological state, he is lethargic. We can always attempt to place NGT endoscopically. He won't be a candidate for G-tube because low platelets. (2) Encephalopathy: Code(s): G93.40 - Encephalopathy, unspecified Status: Acute Assessment and Plan: multifactorial from hypothyroidism, failure to thrive, dehydration, etc. 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 Will check cortisol level, management by primary (4) Rhabdomyolysis: Qualifiers: Encounter type: subsequent encounter Rhabdomyolysis type: traumatic Qualified Code(s): T79.6XXD - Traumatic ischemia of muscle, subsequent encounter Code(s): M62.82 - Rhabdomyolysis Status: Acute Assessment and Plan: improving with medical therapy (5) Thrombocytopenia: Code(s): D69.6 - Thrombocytopenia, unspecified Status: Acute Assessment and Plan: will get abdominal ultrasound to check liver/spleen, also noted elevated bili- check indirect bili to rule out hemolysis, also ldh, retic count, haptoglobulin and hepatitis panel. (6) Anemia: Qualifiers: Anemia type: unspecified type Qualified Code(s): D64.9 - Anemia, unspecified Code(s): D64.9 - Anemia, unspecified Status: Acute Assessment and Plan: no report of gib, hb ~ 10 (7) Ecchymosis: Code(s): R58 - Hemorrhage, not elsewhere classified Status: Acute (8) Dehydration: Code(s): E86.0 - Dehydration Status: Acute Assessment and Plan: renal function improved after hydration. GI Consult Note Consult date/time: 03/05/19 11:59 reason for consult: dysphagia, unable to place NGT HPI: Carlos Sol is a 73 year old male who was brought here after he was found almost unresponsive at home, no really much of history and he is still in lethargic state thus history is obtained from records. He was found to be on AR with creat 1.7 (improved), rhabdo with ck 2.7k (improving), bili 3. Also TSH >100 with low free T4, thrombocytopenia with plat 40-60, normal wbc, blood cultures no growth thus far. CT head and CXR negative. Patient is hardly responding, several attempts of NG tube placement and then DH by radiologist unsuccessful therefore I was called to see him. Speech therapist confirmed severe dysphagia. Review of Systems Review of Systems: ROS unobtainable: unobtainable due to mental status PMFSH Past Medical History Medical History Cataracts, bilateral GERD (gastroesophageal reflux disease) Heart attack Hyperlipidemia Surgical History Surgical History History of angioplasty History of cardiac catheterization History of cataract surgery Family History Family History (Updated 03/01/19 @ 23:38 by Shefali Suggs NP) Mother Cancer Father Liver cancer Other Unknown family medical history Social History Social History (Updated 03/01/19 @ 23:39 by Shefali Suggs NP) Social History: The patient tells me that he is a DNR. The nurse checked with the building supplies salesperson retail who stated the patient is a DNR. The patient tells me that he retired from the [employer] in that he has 3 children. He tells me that he is has . Smoking status: Former smoker Tobacco type: cigarettes Second hand tobacco smoke exposure: No Alcohol intake: never Substance use: never Substance use type: does not use Living arrangements: alone Occupation/Education: retired Gender identity (if verbal
[2019-03-05 13:25] LABS: Immature Reticulocyte Fraction 10.8 % (3.0-15.9); Reticulocyte Hemoglobin Conten 33.5 pg (28.2-35.7); Reticulocyte Percent 1.25 % (0.7-4.3); Reticulocytes Absolute 0.03 B/L (32.2-175.7)
[2019-03-05 13:32] LABS: Bilirubin Indirect 2.1 mg/dL (0-1.1); Triglycerides 59 mg/dL (<150)
[2019-03-05 13:32] LABS: Lactate Dehydrogenase 691 U/L (313-618)
[2019-03-05 14:00] VITALS: BP 110/56; PULSE 76; RESP 14; TEMP 36.7; O2SAT 97
[2019-03-05 14:04] LABS: Hepatitis B Surface Antigen Negative (Negative)
[2019-03-05 14:10] LABS: HAV RESULT Negative (Negative); Hepatitis B Core IgM Result Negative (Negative)
--- NOTE | 2019-03-05 14:17 | PC.NURSE ---
MD aware of lack of IV access and inability to run IV meds, pt removed both sites.
[2019-03-05 14:22] LABS: Hepatitis C Virus Antibody Negative (Negative)
[2019-03-05] MEDS: POTASSIUM PHOS,M-BASIC-D-BASIC 20 MMOL in SODIUM CHLORIDE 0.9% IV 250 ML 64 MMOL IVPB (15:19)
--- NOTE | 2019-03-05 15:45 | PM.IMPN ---
Progress Note: A&P Assessment and Plan (1) Rhabdomyolysis: Qualifiers: Encounter type: subsequent encounter Rhabdomyolysis type: traumatic Qualified Code(s): T79.6XXD - Traumatic ischemia of muscle, subsequent encounter Code(s): M62.82 - Rhabdomyolysis Status: Acute Assessment and Plan: 03/05/19 15:45Patient is 73-year-old male who lives home alone his neighbor had not seen him for a week and called police to check on him patient was found on floor confused there was some bleeding from his arm was not able to provide any review of symptom or history he was brought to the emergency department was found to have a rhabdomyolysis with elevated CK acute kidney disease and elevated TSH unfortunately patient is not able to provide any details, patient was started on low-dose levothyroxine patient is being hydrated his CK level is trending down, his kidney function is improving he little more awake today than he had been yesterday unable to provide any review of symptoms will continue to hydrate the patient, plan was to start the patient on NG tube and feeding however we were not able to answer NG-tube patient is seen by GI recommending EGD however patient is elderly and quite somnolent may not be able to tolerate anesthesia I spoke this with family they will decide tomorrow and they want to have EGD (2) Elevated TSH: Code(s): R79.89 - Other specified abnormal findings of blood chemistry Status: Acute Assessment and Plan: Patient TSH is over 100 there is no detail about his past history I have started the patient on low-dose or levothyroxine 25 mcg q.day will continue to monitor patient, unlikely patient has a myxedema coma is able to maintain temperature his vitals are stable clinically patient is improving with hydration (3) Anemia: Qualifiers: Anemia type: unspecified type Qualified Code(s): D64.9 - Anemia, unspecified Code(s): D64.9 - Anemia, unspecified Status: Acute Assessment and Plan: Continue to monitor patient's H&H. (4) Adult failure to thrive: Code(s): R62.7 - Adult failure to thrive Status: Acute Assessment and Plan: Patient lives home alone and is a DNR. I will consult career services director for possible placement. I will started PT OT evaluation. (5) Dehydration: Code(s): E86.0 - Dehydration Status: Acute Assessment and Plan: Patient's mucous membranes are dry. Continue with with good oral care and IV fluids. Not sure where his baseline is. Patient lactic was 2 point now 1.5., patient creatinine has improved from 1.7-1 today will continue to hydrate the patient (6) Hyperbilirubinemia: Code(s): E80.6 - Other disorders of bilirubin metabolism Status: Acute Assessment and Plan: To his rhabdomyolysis. (7) AR (acute kidney injury): Code(s): N17.9 - Acute kidney failure, unspecified Status: Acute Assessment and Plan: Patient with acute kidney injury most likely secondary dehydration as patient kidney function is improving with hydration Subjective Date/time seen: 03/05/19 15:45Patient is 73-year-old male who lives home alone his neighbor had not seen him for a week and called police to check on him patient was found on floor confused there was some bleeding from his arm was not able to provide any review of symptom or history he was brought to the emergency department was found to have a rhabdomyolysis with elevated CK acute kidney disease and elevated TSH unfortunately patient is not able to provide any details, patient was started on low-dose levothyroxine patient is being hydrated his CK level is trending down, his kidney function is improving he little more awake today than he had been yesterday unable to provide any review of symptoms will continue to hydrate the patient, plan was to start the patient on NG tube and feeding however we were not able to answer NG-tube juliet
[2019-03-05] MEDS: SODIUM BICARBONATE 8.4% 100 MEQ in DEXTROSE 5% 1,000 ML 1,000 ML 50 MEQ IV CONT (16:31)
[2019-03-05] MEDS: AMINO ACIDS 4.25%/D5W/LYTES/CA 2,000 ML 100 ML IV CONT (17:02)
[2019-03-05 17:05] LABS: Glucose Point of Care 153 (65-105)
--- NOTE | 2019-03-05 18:00 | WPDNEURCNPN ---
Assessment and Plan Assessment and plan (1) AR (acute kidney injury): Code(s): N17.9 - Acute kidney failure, unspecified Status: Acute (2) Dysphagia: Qualifiers: Dysphagia type: unspecified Qualified Code(s): R13.10 - Dysphagia, unspecified Code(s): R13.10 - Dysphagia, unspecified Status: Acute (3) Thrombocytopenia: Code(s): D69.6 - Thrombocytopenia, unspecified Status: Acute (4) Encephalopathy: Code(s): G93.40 - Encephalopathy, unspecified Status: Acute (5) Anemia: Qualifiers: Anemia type: unspecified type Qualified Code(s): D64.9 - Anemia, unspecified Code(s): D64.9 - Anemia, unspecified Status: Acute (6) Elevated TSH: Code(s): R79.89 - Other specified abnormal findings of blood chemistry Status: Acute (7) Adult failure to thrive: Code(s): R62.7 - Adult failure to thrive Status: Acute (8) Rhabdomyolysis: Qualifiers: Encounter type: subsequent encounter Rhabdomyolysis type: traumatic Qualified Code(s): T79.6XXD - Traumatic ischemia of muscle, subsequent encounter Code(s): M62.82 - Rhabdomyolysis Status: Acute (9) Dehydration: Code(s): E86.0 - Dehydration Status: Acute (10) Multiple falls: Code(s): R29.6 - Repeated falls Status: Acute (11) Ecchymosis: Code(s): R58 - Hemorrhage, not elsewhere classified Status: Acute (12) Avulsion of skin: Code(s): T14.8XXA - Other injury of unspecified body region, initial encounter Status: Acute (13) Hyperbilirubinemia: Code(s): E80.6 - Other disorders of bilirubin metabolism Status: Acute Additional Plan I suspect the patient has underlying dementia along with gait disorder and superimposed encephalopathy due to multiple factors involved I do not believe that he will be able to which is with stand an MRI and I do not believe it is necessary also I will order some blood work including B12 folate and follow him Consult date: 03/05/19 Time Seen: 17:30 HPI: Carlos Sol is a 73 year old male who really is unable to offer much of a history but he is able to follow commands and answer several questions quite a bit moving his arms and legs quite a bit seems fidgety and picking on objects but when he is redirected is able to do so patient was admitted because of rhabdomyolysis and multiple medical issues which has been summarized in the initial history and physical examination this examiner's asked of to look into his change in the mental status which has been fluctuating gotten to the nurses who were present at the time of the interview The patient's CT head has been negative when he came in and multiple imaging studies did not reveal any acute findings Review of Systems Constitutional: Constitutional: Reports as per HPI and Reports no additional constitutional complaints Eyes: Eyes: Reports as per HPI and Reports no additional eye complaints ENT: Reports system reviewed and no additional complaints, except as documented and Reports as per HPI Cardiovascular: Cardiovascular: Reports as per HPI and Reports no additional cardiovascular complaints Respiratory: Respiratory: Reports as per HPI and Reports no additional respiratory complaints Gastrointestinal: Gastrointestinal: Reports as per HPI and Reports no additional gastrointestinal complaints Genitourinary: Genitourinary: Reports no additional male genitourinary complaints and Reports as per HPI Musculoskeletal: Musculoskeletal: Reports as per HPI Neurologic: Reports system reviewed and no additional complaints, except as documented and Reports as per HPI [facility] Past Medical History Medical History Cataracts, bilateral Dysphagia Encephalopathy GERD (gastroesophageal reflux disease) Heart attack Hyperlipidemia Hypothyroid coma Thrombocytopenia Surgical History Restrepo
[2019-03-05 19:15] LABS: Creatine Kinase 194 U/L (55-170)
[2019-03-05 19:35] LABS: Glucose Point of Care 107 (65-105)
[2019-03-05 20:23] LABS: Folic Acid 2.3 ng/mL (2.76->20); Vitamin B12 > 1000.0 pg/mL (239-931)
[2019-03-05 21:09] VITALS: BP 105/46; PULSE 68; RESP 18; TEMP 36.1; O2SAT 98
[2019-03-06 02:03] LABS: Glucose Point of Care 108 (65-105)
[2019-03-06] MEDS: LEVOTHYROXINE SODIUM INJ 100 MCG/5 ML VIAL 12.5 MCG IV PUSH (05:46)
[2019-03-06 06:00] VITALS: BP 111/49; PULSE 64; RESP 16; TEMP 36.2; O2SAT 97
[2019-03-06 06:10] LABS: Glucose Point of Care 111 (65-105)
[2019-03-06 06:18] LABS: Hematocrit 23.4 % (42.0-52.0); Hemoglobin 8.4 g/dL (14.0-18.0); Immature Platelet Fraction Pct 2.8 % (0.9-11.2); Mean Corpuscular HGB Conc 35.9 g/dl (32-36); Mean Corpuscular Hemoglobin 34.1 pg (26-34); Mean Corpuscular Volume 95.1 fl (80-100); Mean Platelet Volume 9.9 fl (7.4-10.4); Platelet Count Result 29 k/mm3 (150-375); Red Blood Count 2.46 M/mm3 (4.6-6.20); Red Cell Distribution Width 14.3 % (11.5-14.5); White Blood Count 6.5 K/mm3 (4.5-10.0)
[2019-03-06 06:42] LABS: Alanine Aminotransferase 25 U/L (4-50); Albumin Level 2.7 g/dL (3.5-5.1); Alkaline Phosphatase 40 U/L (38-126); Aspartate Amino Transferase 36 U/L (17-59); Bilirubin,Total 1.9 mg/dL (0.2-1.3); Blood Urea Nitrogen 29 mg/dL (9-20); Calcium 9.7 mg/dL (8.4-10.2); Carbon Dioxide 16 mmol/L (22-30); Chloride 110 mmol/L (98-107); Creatine Kinase 149 U/L (55-170); Estimated CRCL calculation 82 ml/min; Estimated Glomerular Filt Rate > 60; Glucose 96 mg/dL (75-110); Phosphorus 3.1 mg/dL (2.5-4.5); Potassium 3.3 mmol/L (3.4-5.0); Sodium 137 mmol/L (137-145)
--- NOTE | 2019-03-06 07:47 | WPDURCON ---
Assessment and Plan Assessment and plan (1) Urinary retention: Code(s): R33.9 - Retention of urine, unspecified Status: Acute Assessment and Plan: Urinary Retention in Found Down Patient Given patient's neurologic status, it may be affecting his ability to void on his own. PLAN: -No acute urologic intervention -Verde catheter to stay in place -Will need exchanged q3-4 weeks -Ultimate workup and plans are all elective, and need to be weighed against patient's prognosis and decisions made by POA -- should they elect to pursue further workup and interventions, they may seek Urologic care on an outpatient basis Urology Consult Note HPI Date Seen: 03/06/19 Requesting Physician: Tony Hancock MD Primary Care Provider: [facility] Consult Narrative Narrative: Carlos Sol is a 73 year old male for whom Urology is consulted for urethral discharge. History is limited as the patient, who at his baseline lived at home alone, was found down for unknown period of time after Police were called by a concerned neighbor. Patient is noncommunicative. He has been admitted since 03/01/2019, but Urology consulted yesterday for new finding of carrie-purulent urethral discharge. In speaking to nursing staff, he is urinarily incontinent, but without a verde and without bladder scans. Bladder scan revealed >200cc, so verde catheter placed by nursing. Review of Systems Review of Systems: ROS unobtainable: unobtainable due to mental condition PMFSH Past Medical History Medical History Cataracts, bilateral Dysphagia Encephalopathy GERD (gastroesophageal reflux disease) Heart attack Hyperlipidemia Hypothyroid coma Thrombocytopenia Surgical History Surgical History History of angioplasty History of cardiac catheterization History of cataract surgery Family History Family History Mother Cancer Father Liver cancer Other Unknown family medical history Social History Social History Social History: The patient tells me that he is a DNR. The nurse checked with the personal insurance advisor who stated the patient is a DNR. The patient tells me that he retired from the [employer] in that he has 3 children. He tells me that he is has . Smoking status: Former smoker Tobacco type: cigarettes Second hand tobacco smoke exposure: No Alcohol intake: never Substance use: never Substance use type: does not use Living arrangements: alone Occupation/Education: retired Gender identity (if verbalized by the patient): Male Spiritual care concerns: No Meds Home Medications and Allergies Home Medications Medication Instructions Recorded Confirmed Type rosuvastatin 10 mg PO QPM 03/02/19 03/02/19 History Allergies Allergy/AdvReac Type Severity Reaction Status Date / Time No Known Allergies Allergy Unknown Verified 03/13/18 12:47 Vital Signs Vital Signs - 24 hr 03/05/19 14:00 03/05/19 21:09 03/06/19 06:00 Temperature 36.7 C 36.1 C L 36.2 C L Pulse Rate 76 68 64 Respiratory Rate 14 18 16 Blood Pressure 110/56 L 105/46 L 111/49 L Pulse Oximetry 97 98 97 Exam Const: General: no acute distress Other: Non-communicative or interactive, but is not in distress Eyes: Other: Closed, unable to assess Resp: Effort & Inspection: normal respiratory effort Cardio: Rate: regular rate : Other: Circumcised, normal appearing external genitalia Urinary Catheter: Urinary Catheter: patent and draining and urine clear Neuro: Other: Unable to respond to any commands Results Labs CBC & Chem 7: 03/06/19 05:36 03/06/19 05:36 Labs: Short CBC 03/06/19 Range/Units 05:36 WBC 6.5 (4.5-10.0) K/mm3 Hgb 8.4 L (14.0-18.0) g/dL
[2019-03-06] MEDS: SILVERGEL (ELTA) 45 ML 1 APPLIC TOPICAL (08:12)
[2019-03-06] MEDS: LIDOCAINE 5% PATCH 1 PATCH TRANSDERM (08:14)
--- NOTE | 2019-03-06 12:18 | WPDGIPROGNO ---
Progress Note: A&P Assessment and Plan (1) Dysphagia: Qualifiers: Dysphagia type: unspecified Qualified Code(s): R13.10 - Dysphagia, unspecified Code(s): R13.10 - Dysphagia, unspecified Status: Acute Assessment and Plan: multifactorial, he is confused and acutely ill. He will be high risk for endoscopic intervention and probably won't tolerate anesthesia, will defer for now (2) Thrombocytopenia: Code(s): D69.6 - Thrombocytopenia, unspecified Status: Acute Assessment and Plan: noted worsening thrombocytopenia, also probably hemolysis (elevated indirect bili and LDH)- ? TTP, DIC, sepsis. Get labs, blood cultures no growth so far. Abdominal ultrasound without cirrhosis or portal hypertension. (3) Encephalopathy: Code(s): G93.40 - Encephalopathy, unspecified Status: Acute (4) Hypothyroid: Qualifiers: Hypothyroidism type: unspecified Qualified Code(s): E03.9 - Hypothyroidism, unspecified Code(s): E03.9 - Hypothyroidism, unspecified Status: Acute Assessment and Plan: profound hypothyroidism, treatment by primary team (5) Anemia: Qualifiers: Anemia type: unspecified type Qualified Code(s): D64.9 - Anemia, unspecified Code(s): D64.9 - Anemia, unspecified Status: Acute (6) AR (acute kidney injury): Code(s): N17.9 - Acute kidney failure, unspecified Status: Acute Assessment and Plan: resolved (7) Hyperbilirubinemia: Code(s): E80.6 - Other disorders of bilirubin metabolism Status: Acute Assessment and Plan: predominant indirect, hepatitis panel negative. (8) Rhabdomyolysis: Qualifiers: Encounter type: subsequent encounter Rhabdomyolysis type: traumatic Qualified Code(s): T79.6XXD - Traumatic ischemia of muscle, subsequent encounter Code(s): M62.82 - Rhabdomyolysis Status: Acute Assessment and Plan: resolved Subjective Date/time seen: 03/06/19 12:18 Interval history: he is still confused but more awake, he can tell me that he is at the hospital, looks sick Exam Const: Other: looks sick, more awake and alert HENMT: General nose exam: Normal nares present Neck: Neck: supple Resp: Auscultation: clear to auscultation bilaterally Cardio: Rate: regular rate GI: Inspection: non-distended Auscultation: normal bowel sounds Skin: General skin exam: ecchymosis Neuro: Cognition (Neuro): abnormal cognition Objective Data Vital Signs Vital Signs: Vital Signs - 24 hr 03/05/19 14:00 03/05/19 21:09 03/06/19 06:00 Temperature 98.0 F 97.0 F L 97.2 F L Pulse Rate 76 68 64 Respiratory Rate 14 18 16 Blood Pressure 110/56 L 105/46 L 111/49 L Pulse Oximetry 97 98 97 Intake/Output Intake/Output: Intake & Output 03/03/19 03/04/19 03/05/19 03/06/19 23:59 23:59 23:59 23:59 Intake Total 2337 2650 3414 1806 Output Total 0 150 650 Balance 2337 2650 3264 1156 Meds/Results Medications: Active Medications Generic Name Dose Route Start Last Admin Trade Name Freq PRN Reason Stop Dose Admin Dextrose 12.5 gm 03/03/19 08:06 03/03/19 08:24 Dextrose 50% Syringe IV PUSH 12.5 gm PRN PRN Administration Hypoglycemia Protocol Glucagon 1 mg 03/03/19 08:06 Glucagon For Inj IM PRN PRN Hypoglycemia Protocol Glucose 15 gm 03/03/19 08:06 Glutose 15 PO PRN PRN Hypoglycemia Protocol Dextrose 1,000 mls @ 100 mls/hr 03/03/19 08:06 Dextrose 5% 1,000 Ml IVPB PRN PRN Hypoglycemia Protocol Ceftriaxone Sodium/Dextrose 1 gm in 50 mls @ 100 mls/hr 03/04/19 21:00 03/05/19 21:15 Rocephin 1 Gm/D5w 50 Ml IVPB Infused HS PRATIK Infusion Dextrose 1,000 mls @ 50 mls/hr 03/04/19 18:34 Dextrose 10% IV CONT .Q20H PRN if PN is interrupted Doxycycline Hyclate 100 mg/ 100 mls @ 100 mls/hr 03/04/19 21:00 03/06/19 10:41 Dextrose IVPB I
[2019-03-06] MEDS: AMINO ACIDS 4.25%/D5W/LYTES/CA 2,000 ML 100 ML IV CONT (12:48)
[2019-03-06] MEDS: SODIUM BICARBONATE 8.4% 100 MEQ in DEXTROSE 5% 1,000 ML 1,000 ML 50 MEQ IV CONT (12:55)
[2019-03-06 13:01] LABS: Glucose Point of Care 93 (65-105)
[2019-03-06 13:32] LABS: INR 2.5; Prothrombin Time 26.9 Seconds (11.1-14.7)
[2019-03-06 13:33] LABS: Partial Thromboplastin Time 28.7 SECONDS (22.3-36.8)
[2019-03-06 13:39] LABS: Fibrinogen 158 mg/dl (215-510)
[2019-03-06 14:00] VITALS: BP 104/68; PULSE 50; RESP 16; TEMP 36.1; O2SAT 100
--- NOTE | 2019-03-06 15:27 | PM.IMPN ---
Progress Note: A&P Assessment and Plan (1) Metabolic encephalopathy: Code(s): G93.41 - Metabolic encephalopathy Status: Acute Assessment and Plan: He is currently restless and moans intermittently He resists evaluation and care He has deteriorated in spite of appropriate medical treatment Daughters at bedside wish comfort care only Hospice consult written and called in for MARGA meeting with family at bedside. (2) Rhabdomyolysis: Qualifiers: Encounter type: subsequent encounter Rhabdomyolysis type: traumatic Qualified Code(s): T79.6XXD - Traumatic ischemia of muscle, subsequent encounter Code(s): M62.82 - Rhabdomyolysis Status: Acute (3) AR (acute kidney injury): Code(s): N17.9 - Acute kidney failure, unspecified Status: Acute (4) Hypothyroid: Qualifiers: Hypothyroidism type: unspecified Qualified Code(s): E03.9 - Hypothyroidism, unspecified Code(s): E03.9 - Hypothyroidism, unspecified Status: Acute Subjective Date/time seen: 03/06/19 15:27 Interval history: Patient and family seen at request of Dr. Mancilla. Chart reviewed. Exam Narrative: Exam Narrative: Moaning, restless, resists exam PERRL, sclerae nonicteric No jvd Chest coarse Heart RR Extr no edema Abd hypoactive BS Objective Data Vital Signs Vital Signs: Vital Signs - 24 hr 03/05/19 21:09 03/06/19 06:00 03/06/19 14:00 Temperature 97.0 F L 97.2 F L 97.0 F L Pulse Rate 68 64 50 L Respiratory Rate 18 16 16 Blood Pressure 105/46 L 111/49 L 104/68 Pulse Oximetry 98 97 100 Intake/Output Intake/Output: Intake & Output 03/03/19 03/04/19 03/05/19 03/06/19 23:59 23:59 23:59 23:59 Intake Total 2337 2650 3414 3700 Output Total 0 150 650 Balance 2337 2650 3264 3050 Meds/Results Medications: Active Medications Generic Name Dose Route Start Last Admin Trade Name Freq PRN Reason Stop Dose Admin Dextrose 12.5 gm 03/03/19 08:06 03/03/19 08:24 Dextrose 50% Syringe IV PUSH 12.5 gm PRN PRN Administration Hypoglycemia Protocol Glucagon 1 mg 03/03/19 08:06 Glucagon For Inj IM PRN PRN Hypoglycemia Protocol Glucose 15 gm 03/03/19 08:06 Glutose 15 PO PRN PRN Hypoglycemia Protocol Dextrose 1,000 mls @ 100 mls/hr 03/03/19 08:06 Dextrose 5% 1,000 Ml IVPB PRN PRN Hypoglycemia Protocol Ceftriaxone Sodium/Dextrose 1 gm in 50 mls @ 100 mls/hr 03/04/19 21:00 03/05/19 21:15 Rocephin 1 Gm/D5w 50 Ml IVPB Infused HS PRATIK Infusion Dextrose 1,000 mls @ 50 mls/hr 03/04/19 18:34 Dextrose 10% IV CONT .Q20H PRN if PN is interrupted Doxycycline Hyclate 100 mg/ 100 mls @ 100 mls/hr 03/04/19 21:00 03/06/19 10:41 Dextrose IVPB Infused Q12HR PRATIK Infusion Amino Acids/Electrolytes/Dextrose 2,000 mls @ 100 mls/hr 03/04/19 19:10 03/06/19 12:48 Clinimix E 4.25%/5% Solution IV CONT 100 mls/hr .Q20H PRATIK Administration Protocol Sodium Bicarbonate 100 meq/ 1,100 mls @ 50 mls/hr 03/05/19 15:45 03/06/19 12:55 Dextrose IV CONT 50 mls/hr .Q22H PRATIK Administration Levothyroxine Sodium 12.5 mcg 03/03/19 06:30 03/06/19 05:46 Levothyroxine Sodium Inj IV PUSH 12.5 mcg DAILY@0630 PRATIK Administration Lidocaine 1 patch 03/03/19 09:00 03/06/19 08:14 Lidoderm TRANSDERM 1 patch DAILY PRATIK Administration Silver Nitrate 1 applic 03/03/19 09:00 03/06/19 08:12 Silvergel TOPICAL 1 applic Q72HR PRATIK Administration Wound Care/Dressing Products 1 patch 03/04/19 09:00 03/04/19 16:34 Mepilex Transfer Drsg 6x8 TOPICAL 1 patch Q72HR PRATIK Administration Wound Care/Dressing Products 1 patch 03/04/19 09:00 03/04/19 16:33 Mepilex Transfer Drsg 6x8 TOPICAL 1 patch Q72HR PRATIK Administration Wound Care/Dressing Products 1 patch 03/05/19 10:24 01/25/20 11:09 Mepilex Transfer Drsg 6x8 TOPICAL 1 patch PRN PRN A
--- NOTE | 2019-03-06 15:30 | PM.DS ---
DS: Diagnosis Admitting Diagnosis Admitting Diagnosis: Traumatic ischemia of muscle, subsequent encounter Discharge Diagnosis (1) Metabolic encephalopathy: Code(s): G93.41 - Metabolic encephalopathy Status: Acute Assessment and Plan: He is currently restless and moans intermittently He resists evaluation and care He has deteriorated in spite of appropriate medical treatment Daughters at bedside wish comfort care only Hospice consult written and called in for MARGA meeting with family at bedside. (2) Rhabdomyolysis: Qualifiers: Encounter type: subsequent encounter Rhabdomyolysis type: traumatic Qualified Code(s): T79.6XXD - Traumatic ischemia of muscle, subsequent encounter Code(s): M62.82 - Rhabdomyolysis Status: Acute (3) AR (acute kidney injury): Code(s): N17.9 - Acute kidney failure, unspecified Status: Acute (4) Hypothyroid: Qualifiers: Hypothyroidism type: unspecified Qualified Code(s): E03.9 - Hypothyroidism, unspecified Code(s): E03.9 - Hypothyroidism, unspecified Status: Acute DS: Summary Hospital Course Reason for hospitalization: Carlos Sol is a 73 year old male lives home alone. The please were sent to his house for wellness check. They found the patient on the the floor of his home. They noted that there was blood all over his house and that he had multiple fractions to his arms. The patient was very confused initially when he came to the emergency room but is now starting to talk more. Patient does not recall what happened prior to today. Initially the please found that the patient was unresponsive but then woke up with a sternal rub. The patient saw his primary care doctor approximately 1 year ago. No meds were listed for his home medications. Date of service 03/01/2019. Hemoglobin is 11.6 and hematocrit 31.4.Patient's temperature was initially 35.6 and he was placed on a Teodora Hugger. His temperature is now 36.4. Blood pressure 117/75. 1.7 with a GFR of 39. Total creatinine kinase 2756. C reactive protein 5.5. TSH was greater than 100. No reflux T3 or T4 was noted. I spoke with Dr. lema who suggested we repeated. Thoracic spine, lumbar spine, pelvic x-ray, cervical spine CT all negative for fractures. Head CT was negative. IV fluids were started. Hospital Course: Patient is 73-year-old male who lives home alone his neighbor had not seen him for a week and called police to check on him patient was found on floor confused there was some bleeding from his arm was not able to provide any review of symptom or history he was brought to the emergency department was found to have a rhabdomyolysis with elevated CK acute kidney disease and elevated TSH unfortunately patient is not able to provide any details, patient was started on low-dose levothyroxine patient is being hydrated his CK level is trending down, his kidney function is improving he little more awake today than he had been yesterday unable to provide any review of symptoms will continue to hydrate the patient, plan was to start the patient on NG tube and feeding however we were not able to answer NG-tube patient is seen by GI recommending EGD, however patient is elderly and quite somnolent may not be able to tolerate anesthesia I spoke this with family they have decided to place patient under hospice care. Status at Discharge Cognitive/behavioral status at discharge: patient is confused Functional status at discharge: bed bound Overall status at discharge: patient is not back to baseline Time Spent with Patient Time attestation: Total time spent providing and/or coordinating discharge services: Patient was seen and examined at the time of the discharge Condition at discharge is stable Code status: Full code. Time spent preparing discharge summary, discharge medications, discussing discharge planning with outpatient case manager and patient is 35 minutes. Time spent: Greater t
--- NOTE | 2019-03-06 15:50 | WPDNEUROPN ---
Progress Note: A&P Assessment and Plan (1) Metabolic encephalopathy: Code(s): G93.41 - Metabolic encephalopathy Status: Acute (2) Hypothyroid: Qualifiers: Hypothyroidism type: unspecified Qualified Code(s): E03.9 - Hypothyroidism, unspecified Code(s): E03.9 - Hypothyroidism, unspecified Status: Acute (3) Urinary retention: Code(s): R33.9 - Retention of urine, unspecified Status: Acute (4) AR (acute kidney injury): Code(s): N17.9 - Acute kidney failure, unspecified Status: Acute (5) Dysphagia: Qualifiers: Dysphagia type: unspecified Qualified Code(s): R13.10 - Dysphagia, unspecified Code(s): R13.10 - Dysphagia, unspecified Status: Acute (6) Thrombocytopenia: Code(s): D69.6 - Thrombocytopenia, unspecified Status: Acute (7) Encephalopathy: Code(s): G93.40 - Encephalopathy, unspecified Status: Acute (8) Anemia: Qualifiers: Anemia type: unspecified type Qualified Code(s): D64.9 - Anemia, unspecified Code(s): D64.9 - Anemia, unspecified Status: Acute (9) Elevated TSH: Code(s): R79.89 - Other specified abnormal findings of blood chemistry Status: Acute (10) Adult failure to thrive: Code(s): R62.7 - Adult failure to thrive Status: Acute (11) Rhabdomyolysis: Qualifiers: Encounter type: subsequent encounter Rhabdomyolysis type: traumatic Qualified Code(s): T79.6XXD - Traumatic ischemia of muscle, subsequent encounter Code(s): M62.82 - Rhabdomyolysis Status: Acute (12) Dehydration: Code(s): E86.0 - Dehydration Status: Acute (13) Multiple falls: Code(s): R29.6 - Repeated falls Status: Acute (14) Ecchymosis: Code(s): R58 - Hemorrhage, not elsewhere classified Status: Acute (15) Avulsion of skin: Code(s): T14.8XXA - Other injury of unspecified body region, initial encounter Status: Acute (16) Hyperbilirubinemia: Code(s): E80.6 - Other disorders of bilirubin metabolism Status: Acute Additional Plan discussed with the family they have decided for him to go home with hospice care which I thing is the most appropriate things to do with gentleman who was living by himself and had fallen several times Review of Systems Constitutional: Constitutional: Reports no additional constitutional complaints Eyes: Eyes: Reports no additional eye complaints ENT: Reports system reviewed and no additional complaints, except as documented Cardiovascular: Cardiovascular: Reports no additional cardiovascular complaints Respiratory: Respiratory: Reports no additional respiratory complaints Gastrointestinal: Gastrointestinal: Reports no additional gastrointestinal complaints Genitourinary: Genitourinary: Reports no additional male genitourinary complaints Musculoskeletal: Musculoskeletal: Reports no additional musculoskeletal complaints Integumentary/Breasts: Skin/Breast: Reports system reviewed and no additional complaints, except as docu Neurologic: Comments: remains with fluctuating dementia Psychiatric: Psychiatric: Reports no additional psychiatric complaints Exam Const: General: comfortable and no acute distress HENMT: General nose exam: Normal nares present Mouth: Yes moist mucous membranes Eyes: General: appearance normal, both eyes and all related structures Neck: Neck: supple and no JVD Resp: Effort & Inspection: normal respiratory effort Auscultation: clear to auscultation bilaterally Cardio: Rate: regular rate Rhythm: regular rhythm GI: Auscultation: normal bowel sounds Skin: General skin exam: normal color and no rashes or lesions noted Neuro: Other: patient has fluctuating mental status however is able to recognize the daughters and follow simple commands without any lateralizing focal motor deficit Extrem: General: normal to inspection
[2019-03-06 18:10] LABS: Glucose Point of Care 92 (65-105)
[2019-03-08 19:44] LABS: Haptoglobin 54 mg/dL (43-212)
== END 2019-03-06 19:34 | disposition hospice, inpatient (51) | DRG 564 ==
LOC: ANHED 13:52 → ANH3MEDSUR 17:38 → ANHIMU 23:23 → ANH2MED 03-04 11:11 → ANH3MEDSUR 03-09 11:56 → ANHIMU 03-09 11:56
PROVIDERS: Internal Medicine Gastroenterology; Nurse Practitioner; Psychiatry & Neurology Neurology; Admitting Provider Internal Medicine; Emergency Provider Emergency Medicine; Visit Provider Family Medicine
DX: T79.6XXA Traumatic ischemia of muscle, initial encounter (principal); G93.41 Metabolic encephalopathy; N17.9 Acute kidney failure, unspecified; D64.9 Anemia, unspecified; R62.7 Adult failure to thrive; Z66 Do not resuscitate; E86.0 Dehydration; E80.6 Other disorders of bilirubin metabolism; H91.90 Unspecified hearing loss, unspecified ear; Z98.41 Cataract extraction status, right eye; Z98.42 Cataract extraction status, left eye; K21.9 Gastro-esophageal reflux disease without esophagitis; I25.2 Old myocardial infarction; E78.5 Hyperlipidemia, unspecified; Z87.891 Personal history of nicotine dependence; W19.XXXA Unspecified fall, initial encounter; D69.6 Thrombocytopenia, unspecified; R13.10 Dysphagia, unspecified; R33.9 Retention of urine, unspecified; E03.9 Hypothyroidism, unspecified
CPT/HCPCS: 36415; 36569; 36600; 43752; 51701; 70450; 71046; 72072; 72100; 72125; 72170; 76700; 80053; 80074; 81001; 82248; 82533; 82550; 82607; 82746; 82805; 83010; 83605; 83615; 83735; 83874; 84100; 84439; 84443; 84466; 84478; 85025; 85027; 85046; 85055; 85380; 85384; 85610; 85730; 86140; 87040; 87491; 87591; 92526; 92610; 92611; 93005; 97110; 97116; 97162; 97166; 97530; 99285; A9270; C1751; J0696; J3480; J7030; J7042; J7050; J7070

== ENCOUNTER 2019-03-06 19:35 | HOS | payer OTHER, MEDICARE, SELFPAY ==
--- NOTE | 2019-03-06 20:52 | PC.NURSE ---
This patient, Carlos Sol, was admitted to Medical Room 255-01. Patient/family oriented to hospital policies and general routines including ID bracelet, bed and alarms, visiting hours, pain management, procedures, bathroom and other care routines, personal items, smoking policy, room service/diet, and visiting hours. Valuables list has been completed. Information on how to activate the Rapid Response Team has been discussed. Patient/Family are encouraged to report perceived risks to care and to ask questions if they do not understand what they are told or what they should do. Pt is admitted to hospice at this time.
[2019-03-06 22:50] VITALS: BP 111/73; PULSE 53; RESP 16; TEMP 35.9; O2SAT 100
[2019-03-07 06:09] VITALS: BP 103/59; PULSE 54; RESP 16; TEMP 36.1; O2SAT 95
[2019-03-07 08:00] VITALS: BP 98/64; PULSE 67; RESP 20; TEMP 35.9; O2SAT 98
--- NOTE | 2019-03-07 08:37 | PM.IMHP ---
H&P: HPI History of Present Illness Chief complaint: HEART DISEASE Narrative: Carlos Sol is a 73 year old male is admitted for inpatient hospice. He was admitted to acute care after being found down at home. Found to have rhabdomyolysis and acute kidney injury and upper GI bleeding and severe hypothyroidism with TSH over 100. Was treated with IV fluids for hydration and IV levothyroxine as well as acid suppression. Found to be severely dysphagic. Family declined a feeding tube. Because of his poor quality of life and his desire to live independently and not in a facility they opted for palliative care only. Review of Systems Review of Systems: ROS unobtainable: unobtainable due to mental status PMFSH Past Medical History Medical History Cataracts, bilateral Dysphagia Encephalopathy GERD (gastroesophageal reflux disease) Heart attack Hyperlipidemia Hypothyroid Hypothyroid coma Thrombocytopenia Surgical History Surgical History History of angioplasty History of cardiac catheterization History of cataract surgery Social History Social History Social History: The patient tells me that he is a DNR. The nurse checked with the mobile home set up person who stated the patient is a DNR. The patient tells me that he retired from the [employer] in that he has 3 children. He tells me that he is has . Smoking status: Former smoker Tobacco type: cigarettes Second hand tobacco smoke exposure: No Alcohol intake: never Substance use: never Substance use type: does not use Gender identity (if verbalized by the patient): Male Spiritual care concerns: No Meds Home Medications and Allergies Home Medications Medication Instructions Recorded Confirmed Type rosuvastatin 10 mg PO QPM 03/02/19 03/06/19 History Allergies Allergy/AdvReac Type Severity Reaction Status Date / Time No Known Allergies Allergy Unknown Verified 03/13/18 12:47 Vital Signs Vital Signs - 24 hr 03/06/19 22:50 03/07/19 06:09 Temperature 96.6 F L 96.9 F L Pulse Rate 53 L 54 L Respiratory Rate 16 16 Blood Pressure 111/73 103/59 L Pulse Oximetry 100 95 Exam Narrative: Exam Narrative: HEENT: EOMI, pupils small and sluggish, pharyngeal mucosa pink and intact NECK: No JVD, adenopathy, or thyromegaly CHEST: CTA. Normal effort. HEART: NL S1/S2, regular, no murmur ABDOMEN: BS hypoactive, soft, nontender, no mass, no bruits EXTREMITIES: No cyanosis, edema, or clubbing NEUROLOGIC: CN intact and symmetric to inspection. MUSCULOSKELETAL: Tone and strength symmetric. PSYCH: Drowsy, responds to noxious stimulit only Assessment and Plan Assessment and plan (1) Palliative care by specialist: Code(s): Z51.5 - Encounter for palliative care Status: Acute Assessment and Plan: Qualifies for GIP due to uncontrolled pain and agitation 03/06 Continues to require morhphine drip for comfort (2) Metabolic encephalopathy: Code(s): G93.41 - Metabolic encephalopathy Status: Acute (3) Hypothyroid: Qualifiers: Hypothyroidism type: unspecified Qualified Code(s): E03.9 - Hypothyroidism, unspecified Code(s): E03.9 - Hypothyroidism, unspecified Status: Acute (4) Dysphagia: Qualifiers: Dysphagia type: unspecified Qualified Code(s): R13.10 - Dysphagia, unspecified Code(s): R13.10 - Dysphagia, unspecified Status: Acute (5) Rhabdomyolysis: Qualifiers: Encounter type: subsequent encounter Rhabdomyolysis type: traumatic Qualified Code(s): T79.6XXD - Traumatic ischemia of muscle, subsequent encounter Code(s): M62.82 - Rhabdomyolysis Status: Acute (6) Protein calorie malnutrition: Qualifiers: Protein-calorie malnutrition severity: unspecified severity
[2019-03-07 20:00] VITALS: PULSE 67; RESP 20; O2SAT 98
[2019-03-07 22:00] VITALS: BP 102/49; PULSE 52; RESP 18; TEMP 36.3; O2SAT 97
[2019-03-08 06:00] VITALS: BP 96/59; PULSE 73; RESP 18; TEMP 36.2; O2SAT 96
[2019-03-08 14:00] VITALS: BP 136/88; PULSE 77; RESP 17; TEMP 36.3; O2SAT 99
[2019-03-08 21:57] VITALS: BP 127/81; PULSE 75; RESP 14; TEMP 35.9; O2SAT 90
[2019-03-09 08:00] VITALS: PULSE 75; RESP 14; O2SAT 90
[2019-03-09 14:00] VITALS: BP 98/69; PULSE 73; RESP 10; TEMP 37.5; O2SAT 95
--- NOTE | 2019-03-09 19:37 | PM.IMPN ---
Progress Note: A&P Assessment and Plan (1) Palliative care by specialist: Code(s): Z51.5 - Encounter for palliative care Status: Acute Assessment and Plan: Qualifies for GIP due to uncontrolled pain and agitation 03/06 03/07 Continues to require morphine drip for comfort 03/08 Continues to require morphine drip for comfort (2) Metabolic encephalopathy: Code(s): G93.41 - Metabolic encephalopathy Status: Acute (3) Hypothyroid: Qualifiers: Hypothyroidism type: unspecified Qualified Code(s): E03.9 - Hypothyroidism, unspecified Code(s): E03.9 - Hypothyroidism, unspecified Status: Acute (4) Dysphagia: Qualifiers: Dysphagia type: unspecified Qualified Code(s): R13.10 - Dysphagia, unspecified Code(s): R13.10 - Dysphagia, unspecified Status: Acute (5) Rhabdomyolysis: Qualifiers: Encounter type: subsequent encounter Rhabdomyolysis type: traumatic Qualified Code(s): T79.6XXD - Traumatic ischemia of muscle, subsequent encounter Code(s): M62.82 - Rhabdomyolysis Status: Acute (6) Protein calorie malnutrition: Qualifiers: Protein-calorie malnutrition severity: unspecified severity Qualified Code(s): E46 - Unspecified protein-calorie malnutrition Code(s): E46 - Unspecified protein-calorie malnutrition Status: Acute (7) CAD (coronary artery disease): Qualifiers: Coronary Disease-Associated Artery/Lesion type: [place] artery [place] vs. transplanted heart: [place] heart Associated angina: without angina Qualified Code(s): I25.10 - Atherosclerotic heart disease of [place] coronary artery without angina pectoris Code(s): I25.10 - Atherosclerotic heart disease of [place] coronary artery without angina pectoris Status: Acute Subjective Date/time seen: 03/09/19 19:37 Interval history: nonverbal Review of Systems Review of Systems: ROS unobtainable: unobtainable due to mental condition Exam Narrative: Exam Narrative: neck no jvd chest coarse bs abd scaphoid, soft with hypoactive bs extr no edema, warm cn grossly intact Objective Data Vital Signs Vital Signs: Vital Signs - 24 hr 03/08/19 21:57 03/09/19 08:00 03/09/19 14:00 Temperature 96.6 F L 99.5 F Pulse Rate 75 75 73 Respiratory Rate 14 14 10 L Blood Pressure 127/81 98/69 L Pulse Oximetry 90 90 95 Intake/Output Intake/Output: Intake & Output 03/06/19 03/07/19 03/08/19 03/09/19 23:59 23:59 23:59 23:59 Intake Total 100 100 Balance 100 100 Meds/Results Medications: Active Medications Generic Name Dose Route Start Last Admin Trade Name Freq PRN Reason Stop Dose Admin Artificial Tears 1 drop 03/06/19 20:36 Artificial Tears EACH EYE PRN PRN Dry Eye(s) Bisacodyl 10 mg 03/06/19 20:37 Dulcolax Suppository RECTAL QAM PRN Constipation Glycopyrrolate 0.1 mg 03/06/19 20:37 Robinul Inj IV PUSH Q4H PRN INCREASED SECRETIONS Morphine Sulfate 50 mg/ Sodium 100 mls @ 2 mls/hr 03/06/19 20:40 03/09/19 05:44 Chloride IV CONT 1 mg/hr .Q24H PRATIK 2 mls/hr Administration 1 MG/HR Lorazepam 1 mg 03/06/19 20:38 Ativan Inj IV PUSH Q4H PRN Anxiety Morphine Sulfate 1 mg 03/06/19 20:38 Morphine Sulfate Inj IV PUSH Q1H PRN PAIN/SOB Prochlorperazine Edisylate 10 mg 03/06/19 20:37 Compazine IV PUSH Q6H PRN Nausea And Vomiting
[2019-03-09 19:57] VITALS: BP 108/54; PULSE 94; RESP 14; TEMP 37.8; O2SAT 94
[2019-03-10 08:00] VITALS: BP 102/65; PULSE 84; RESP 10; TEMP 36.4; O2SAT 96
[2019-03-10] MEDS: LORAZEPAM INJ 2 MG/ML VIAL 1 MG IV PUSH (09:41)
[2019-03-10 09:50] VITALS: RESP 7
[2019-03-10 14:00] VITALS: BP 103/67; PULSE 81; RESP 7; TEMP 36.5; O2SAT 100
[2019-03-10 20:00] VITALS: BP 107/62; PULSE 63; RESP 10; TEMP 36.4; O2SAT 99
--- NOTE | 2019-03-10 20:03 | PM.IMPN ---
Progress Note: A&P Assessment and Plan (1) Palliative care by specialist: Code(s): Z51.5 - Encounter for palliative care Status: Acute Assessment and Plan: Qualifies for GIP due to uncontrolled pain and agitation 03/06 03/07 Continues to require morphine drip for comfort 03/08 Continues to require morphine drip for comfort (2) Metabolic encephalopathy: Code(s): G93.41 - Metabolic encephalopathy Status: Acute (3) Hypothyroid: Qualifiers: Hypothyroidism type: unspecified Qualified Code(s): E03.9 - Hypothyroidism, unspecified Code(s): E03.9 - Hypothyroidism, unspecified Status: Acute (4) Dysphagia: Qualifiers: Dysphagia type: unspecified Qualified Code(s): R13.10 - Dysphagia, unspecified Code(s): R13.10 - Dysphagia, unspecified Status: Acute (5) Rhabdomyolysis: Qualifiers: Encounter type: subsequent encounter Rhabdomyolysis type: traumatic Qualified Code(s): T79.6XXD - Traumatic ischemia of muscle, subsequent encounter Code(s): M62.82 - Rhabdomyolysis Status: Acute (6) Protein calorie malnutrition: Qualifiers: Protein-calorie malnutrition severity: unspecified severity Qualified Code(s): E46 - Unspecified protein-calorie malnutrition Code(s): E46 - Unspecified protein-calorie malnutrition Status: Acute (7) CAD (coronary artery disease): Qualifiers: Coronary Disease-Associated Artery/Lesion type: [place] artery [place] vs. transplanted heart: [place] heart Associated angina: without angina Qualified Code(s): I25.10 - Atherosclerotic heart disease of [place] coronary artery without angina pectoris Code(s): I25.10 - Atherosclerotic heart disease of [place] coronary artery without angina pectoris Status: Acute Subjective Date/time seen: 03/10/19 20:03 Interval history: nonverbal Objective Data Vital Signs Vital Signs: Vital Signs - 24 hr 03/10/19 08:00 03/10/19 09:50 03/10/19 14:00 Temperature 97.6 F 97.7 F Pulse Rate 84 81 Respiratory Rate 10 L 7 L 7 L Blood Pressure 102/65 103/67 Pulse Oximetry 96 100 Intake/Output Intake/Output: Intake & Output 03/07/19 03/08/19 03/09/19 03/10/19 23:59 23:59 23:59 23:59 Intake Total 100 100 79.5 Output Total 550 Balance 100 100 -470.5 Meds/Results Medications: Active Medications Generic Name Dose Route Start Last Admin Trade Name Freq PRN Reason Stop Dose Admin Artificial Tears 1 drop 03/06/19 20:36 Artificial Tears EACH EYE PRN PRN Dry Eye(s) Bisacodyl 10 mg 03/06/19 20:37 Dulcolax Suppository RECTAL QAM PRN Constipation Glycopyrrolate 0.1 mg 03/06/19 20:37 Robinul Inj IV PUSH Q4H PRN INCREASED SECRETIONS Morphine Sulfate 50 mg/ Sodium 100 mls @ 2 mls/hr 03/06/19 20:40 03/10/19 16:48 Chloride IV CONT 1 mg/hr .Q24H PRATIK 2 mls/hr Infusion 1 MG/HR Lorazepam 1 mg 03/06/19 20:38 03/10/19 09:41 Ativan Inj IV PUSH 1 mg Q4H PRN Administration Anxiety Morphine Sulfate 1 mg 03/06/19 20:38 Morphine Sulfate Inj IV PUSH Q1H PRN PAIN/SOB Prochlorperazine Edisylate 10 mg 03/06/19 20:37 Compazine IV PUSH Q6H PRN Nausea And Vomiting
--- NOTE | 2019-03-11 13:50 | PM.IMPN ---
Progress Note: A&P Assessment and Plan (1) Palliative care by specialist: Code(s): Z51.5 - Encounter for palliative care Status: Acute Assessment and Plan: Qualifies for GIP due to uncontrolled pain and agitation 03/06 03/07 Continues to require morphine drip for comfort 03/08 Continues to require morphine drip for comfort 03/11 restlessness observed by me. Increase morphine to 2mg/hr. (2) Metabolic encephalopathy: Code(s): G93.41 - Metabolic encephalopathy Status: Acute (3) Hypothyroid: Qualifiers: Hypothyroidism type: unspecified Qualified Code(s): E03.9 - Hypothyroidism, unspecified Code(s): E03.9 - Hypothyroidism, unspecified Status: Acute (4) Dysphagia: Qualifiers: Dysphagia type: unspecified Qualified Code(s): R13.10 - Dysphagia, unspecified Code(s): R13.10 - Dysphagia, unspecified Status: Acute (5) Rhabdomyolysis: Qualifiers: Encounter type: subsequent encounter Rhabdomyolysis type: traumatic Qualified Code(s): T79.6XXD - Traumatic ischemia of muscle, subsequent encounter Code(s): M62.82 - Rhabdomyolysis Status: Acute (6) Protein calorie malnutrition: Qualifiers: Protein-calorie malnutrition severity: unspecified severity Qualified Code(s): E46 - Unspecified protein-calorie malnutrition Code(s): E46 - Unspecified protein-calorie malnutrition Status: Acute (7) CAD (coronary artery disease): Qualifiers: Coronary Disease-Associated Artery/Lesion type: [place] artery [place] vs. transplanted heart: [place] heart Associated angina: without angina Qualified Code(s): I25.10 - Atherosclerotic heart disease of [place] coronary artery without angina pectoris Code(s): I25.10 - Atherosclerotic heart disease of [place] coronary artery without angina pectoris Status: Acute Subjective Date/time seen: 03/11/19 13:50 Interval history: nonverbal Exam Narrative: Exam Narrative: neck no jvd chest coarse bs abd scaphoid, soft with hypoactive bs extr no edema, warm cn grossly intact Objective Data Vital Signs Vital Signs: Vital Signs - 24 hr 03/10/19 14:00 03/10/19 20:00 Temperature 97.7 F 97.6 F Pulse Rate 81 63 Respiratory Rate 7 L 10 L Blood Pressure 103/67 107/62 Pulse Oximetry 100 99 Intake/Output Intake/Output: Intake & Output 03/08/19 03/09/19 03/10/19 03/11/19 23:59 23:59 23:59 23:59 Intake Total 100 79.5 24.6 Output Total 550 300 Balance 100 -470.5 -275.4 Meds/Results Medications: Active Medications Generic Name Dose Route Start Last Admin Trade Name Freq PRN Reason Stop Dose Admin Artificial Tears 1 drop 03/06/19 20:36 Artificial Tears EACH EYE PRN PRN Dry Eye(s) Bisacodyl 10 mg 03/06/19 20:37 Dulcolax Suppository RECTAL QAM PRN Constipation Glycopyrrolate 0.1 mg 03/06/19 20:37 Robinul Inj IV PUSH Q4H PRN INCREASED SECRETIONS Morphine Sulfate 50 mg/ Sodium 100 mls @ 2 mls/hr 03/06/19 20:40 03/11/19 06:04 Chloride IV CONT 1 mg/hr .Q24H PRATIK 2 mls/hr Infusion 1 MG/HR Lorazepam 1 mg 03/06/19 20:38 03/10/19 09:41 Ativan Inj IV PUSH 1 mg Q4H PRN Administration Anxiety Morphine Sulfate 1 mg 03/06/19 20:38 Morphine Sulfate Inj IV PUSH Q1H PRN PAIN/SOB Prochlorperazine Edisylate 10 mg 03/06/19 20:37 Compazine IV PUSH Q6H PRN Nausea And Vomiting
[2019-03-11 14:00] VITALS: BP 114/62; PULSE 62; RESP 5; TEMP 36.1; O2SAT 97
--- NOTE | 2019-03-11 19:54 | PC.NURSE ---
per Zack in pharmacy, morphine drip verified and ok to use bag #5. Rate and Dosage was changed from 1mg/hr to 2mg/hr. Ok to hang and override bag on 1mg/hr
[2019-03-11 20:00] VITALS: BP 112/61; PULSE 57; RESP 10; TEMP 36; O2SAT 98
[2019-03-12 08:00] VITALS: BP 119/72; PULSE 55; RESP 4; TEMP 36.1; O2SAT 99
--- NOTE | 2019-03-12 15:38 | PM.IMPN ---
Progress Note: A&P Assessment and Plan (1) Palliative care by specialist: Code(s): Z51.5 - Encounter for palliative care Status: Acute Assessment and Plan: Qualifies for GIP due to uncontrolled pain and agitation 03/06 03/07 Continues to require morphine drip for comfort 03/08 Continues to require morphine drip for comfort 03/11 restlessness observed by me. Increase morphine to 2mg/hr. 03/12 continues to require iv morphine drip for comfort, currently 2mg/hr (2) Metabolic encephalopathy: Code(s): G93.41 - Metabolic encephalopathy Status: Acute (3) Hypothyroid: Qualifiers: Hypothyroidism type: unspecified Qualified Code(s): E03.9 - Hypothyroidism, unspecified Code(s): E03.9 - Hypothyroidism, unspecified Status: Acute (4) Dysphagia: Qualifiers: Dysphagia type: unspecified Qualified Code(s): R13.10 - Dysphagia, unspecified Code(s): R13.10 - Dysphagia, unspecified Status: Acute (5) Rhabdomyolysis: Qualifiers: Encounter type: subsequent encounter Rhabdomyolysis type: traumatic Qualified Code(s): T79.6XXD - Traumatic ischemia of muscle, subsequent encounter Code(s): M62.82 - Rhabdomyolysis Status: Acute (6) Protein calorie malnutrition: Qualifiers: Protein-calorie malnutrition severity: unspecified severity Qualified Code(s): E46 - Unspecified protein-calorie malnutrition Code(s): E46 - Unspecified protein-calorie malnutrition Status: Acute (7) CAD (coronary artery disease): Qualifiers: Coronary Disease-Associated Artery/Lesion type: [place] artery [place] vs. transplanted heart: [place] heart Associated angina: without angina Qualified Code(s): I25.10 - Atherosclerotic heart disease of [place] coronary artery without angina pectoris Code(s): I25.10 - Atherosclerotic heart disease of [place] coronary artery without angina pectoris Status: Acute Subjective Date/time seen: 03/12/19 15:38 Interval history: nonverbal Review of Systems Review of Systems: ROS unobtainable: unobtainable due to mental status Exam Narrative: Exam Narrative: neck no jvd chest coarse bs abd scaphoid, soft with hypoactive bs extr no edema, warm cn grossly intact Objective Data Vital Signs Vital Signs: Vital Signs - 24 hr 03/11/19 20:00 03/12/19 08:00 Temperature 96.8 F L 96.9 F L Pulse Rate 57 L 55 L Respiratory Rate 10 L 4 L Blood Pressure 112/61 119/72 Pulse Oximetry 98 99 Intake/Output Intake/Output: Intake & Output 03/09/19 03/10/19 03/11/19 03/12/19 23:59 23:59 23:59 23:59 Intake Total 100 79.5 78.5 0 Output Total 550 300 250 Balance 100 -470.5 -221.5 -250 Meds/Results Medications: Active Medications Generic Name Dose Route Start Last Admin Trade Name Freq PRN Reason Stop Dose Admin Artificial Tears 1 drop 03/06/19 20:36 Artificial Tears EACH EYE PRN PRN Dry Eye(s) Bisacodyl 10 mg 03/06/19 20:37 Dulcolax Suppository RECTAL QAM PRN Constipation Glycopyrrolate 0.1 mg 03/06/19 20:37 Robinul Inj IV PUSH Q4H PRN INCREASED SECRETIONS Morphine Sulfate 50 mg/ Sodium 100 mls @ 4 mls/hr 03/12/19 06:00 03/11/19 19:51 Chloride IV CONT 2 mg/hr .Q24H PRATIK 4 mls/hr Administration 2 MG/HR Lorazepam 1 mg 03/06/19 20:38 03/10/19 09:41 Ativan Inj IV PUSH 1 mg Q4H PRN Administration Anxiety Morphine Sulfate 1 mg 03/06/19 20:38 Morphine Sulfate Inj IV PUSH Q1H PRN PAIN/SOB Prochlorperazine Edisylate 10 mg 03/06/19 20:37 Compazine IV PUSH Q6H PRN Nausea And Vomiting
[2019-03-12 20:00] VITALS: BP 119/70; PULSE 52; RESP 3; TEMP 35.9; O2SAT 100
[2019-03-13 08:00] VITALS: BP 128/80; PULSE 62; RESP 2; TEMP 35.9; O2SAT 99
--- NOTE | 2019-03-13 15:00 | PC.NURSE ---
Patient's family requested a sign builder be notified for patient to receive last rites. Molding Associate notified by chaplain Alfredo Hair. Molding Associate here and administered last rites at the bedside.
[2019-03-13 20:00] VITALS: BP 117/78; PULSE 52; RESP 2; TEMP 35.9; O2SAT 100
[2019-03-14 08:00] VITALS: BP 116/69; PULSE 55; RESP 4; TEMP 34.7; O2SAT 100
--- NOTE | 2019-03-14 11:49 | PCCCNOTE ---
On 03/14/19, the student, [Jyoti Hudson ], provided care and [facility]. I have reviewed the student's documentation and agree with the findings.
--- NOTE | 2019-03-14 16:26 | PM.IMPN ---
Progress Note: A&P Assessment and Plan (1) Palliative care by specialist: Code(s): Z51.5 - Encounter for palliative care Status: Acute Assessment and Plan: Qualifies for GIP due to uncontrolled pain and agitation 03/06 03/07 Continues to require morphine drip for comfort 03/08 Continues to require morphine drip for comfort 03/11 restlessness observed by me. Increase morphine to 2mg/hr. 2/ continues to require iv morphine drip for comfort, currently 2mg/hr 2/2 continues to require iv morphine 2/3 continues to require iv morphine, respirations down to 4 per min, imminent (2) Metabolic encephalopathy: Code(s): G93.41 - Metabolic encephalopathy Status: Acute (3) Hypothyroid: Qualifiers: Hypothyroidism type: unspecified Qualified Code(s): E03.9 - Hypothyroidism, unspecified Code(s): E03.9 - Hypothyroidism, unspecified Status: Acute (4) Dysphagia: Qualifiers: Dysphagia type: unspecified Qualified Code(s): R13.10 - Dysphagia, unspecified Code(s): R13.10 - Dysphagia, unspecified Status: Acute (5) Rhabdomyolysis: Qualifiers: Encounter type: subsequent encounter Rhabdomyolysis type: traumatic Qualified Code(s): T79.6XXD - Traumatic ischemia of muscle, subsequent encounter Code(s): M62.82 - Rhabdomyolysis Status: Acute (6) Protein calorie malnutrition: Qualifiers: Protein-calorie malnutrition severity: unspecified severity Qualified Code(s): E46 - Unspecified protein-calorie malnutrition Code(s): E46 - Unspecified protein-calorie malnutrition Status: Acute (7) CAD (coronary artery disease): Qualifiers: Coronary Disease-Associated Artery/Lesion type: [place] artery [place] vs. transplanted heart: [place] heart Associated angina: without angina Qualified Code(s): I25.10 - Atherosclerotic heart disease of [place] coronary artery without angina pectoris Code(s): I25.10 - Atherosclerotic heart disease of [place] coronary artery without angina pectoris Status: Acute Subjective Date/time seen: 03/14/19 16:26 Interval history: nonverbal Exam Narrative: Exam Narrative: neck no jvd chest coarse bs abd scaphoid, soft with hypoactive bs extr no edema, warm cn grossly intact Objective Data Vital Signs Vital Signs: Vital Signs - 24 hr 03/13/19 20:00 03/14/19 08:00 Temperature 96.6 F L 94.4 F L Pulse Rate 52 L 55 L Respiratory Rate 2 L 4 L Blood Pressure 117/78 116/69 Pulse Oximetry 100 100 Intake/Output Intake/Output: Intake & Output 03/11/19 03/12/19 03/13/19 03/14/19 23:59 23:59 23:59 23:59 Intake Total 78.5 100 100 Output Total 300 250 300 Balance -221.5 -150 -200 Meds/Results Medications: Active Medications Generic Name Dose Route Start Last Admin Trade Name Freq PRN Reason Stop Dose Admin Artificial Tears 1 drop 03/06/19 20:36 03/13/19 16:01 Artificial Tears EACH EYE 1 drop PRN PRN Administration Dry Eye(s) Bisacodyl 10 mg 03/06/19 20:37 Dulcolax Suppository RECTAL QAM PRN Constipation Glycopyrrolate 0.1 mg 03/06/19 20:37 Robinul Inj IV PUSH Q4H PRN INCREASED SECRETIONS Morphine Sulfate 50 mg/ Sodium 100 mls @ 4 mls/hr 03/12/19 06:00 03/14/19 13:59 Chloride IV CONT 2 mg/hr .Q24H PRATIK 4 mls/hr Administration 2 MG/HR Lorazepam 1 mg 03/06/19 20:38 03/10/19 09:41 Ativan Inj IV PUSH 1 mg Q4H PRN Administration Anxiety Morphine Sulfate 1 mg 03/06/19 20:38 Morphine Sulfate Inj IV PUSH Q1H PRN PAIN/SOB Prochlorperazine Edisylate 10 mg 03/06/19 20:37 Compazine IV PUSH Q6H PRN Nausea And Vomiting
[2019-03-14 20:00] VITALS: BP 111/57; PULSE 55; RESP 3; TEMP 36; O2SAT 98
[2019-03-15 08:00] VITALS: BP 117/71; PULSE 67; RESP 16; TEMP 36.2; O2SAT 100
--- NOTE | 2019-03-15 08:37 | PM.IMPN ---
Progress Note: A&P Assessment and Plan (1) Palliative care by specialist: Code(s): Z51.5 - Encounter for palliative care Status: Acute Assessment and Plan: Qualifies for GIP due to uncontrolled pain and agitation 03/06 03/07 Continues to require morphine drip for comfort 03/08 Continues to require morphine drip for comfort 03/11 restlessness observed by me. Increase morphine to 2mg/hr. 2 continues to require iv morphine drip for comfort, currently 2mg/hr 2/ continues to require iv morphine 2/3 continues to require IV morphine 2/4 continues to require iv morphine, respirations as low as 3 per min, imminent (2) Metabolic encephalopathy: Code(s): G93.41 - Metabolic encephalopathy Status: Acute (3) Hypothyroid: Qualifiers: Hypothyroidism type: unspecified Qualified Code(s): E03.9 - Hypothyroidism, unspecified Code(s): E03.9 - Hypothyroidism, unspecified Status: Acute (4) Dysphagia: Qualifiers: Dysphagia type: unspecified Qualified Code(s): R13.10 - Dysphagia, unspecified Code(s): R13.10 - Dysphagia, unspecified Status: Acute (5) Rhabdomyolysis: Qualifiers: Encounter type: subsequent encounter Rhabdomyolysis type: traumatic Qualified Code(s): T79.6XXD - Traumatic ischemia of muscle, subsequent encounter Code(s): M62.82 - Rhabdomyolysis Status: Acute (6) Protein calorie malnutrition: Qualifiers: Protein-calorie malnutrition severity: unspecified severity Qualified Code(s): E46 - Unspecified protein-calorie malnutrition Code(s): E46 - Unspecified protein-calorie malnutrition Status: Acute (7) CAD (coronary artery disease): Qualifiers: Coronary Disease-Associated Artery/Lesion type: [place] artery [place] vs. transplanted heart: [place] heart Associated angina: without angina Qualified Code(s): I25.10 - Atherosclerotic heart disease of [place] coronary artery without angina pectoris Code(s): I25.10 - Atherosclerotic heart disease of [place] coronary artery without angina pectoris Status: Acute Subjective Date/time seen: 03/15/19 08:37 Interval history: nonverbal Exam Narrative: Exam Narrative: neck no jvd chest coarse bs abd scaphoid, soft with hypoactive bs extr no edema, warm cn grossly intact Objective Data Vital Signs Vital Signs: Vital Signs - 24 hr 03/14/19 20:00 Temperature 96.8 F L Pulse Rate 55 L Respiratory Rate 3 L Blood Pressure 111/57 L Pulse Oximetry 98 Intake/Output Intake/Output: Intake & Output 03/12/19 03/13/19 03/14/19 03/15/19 23:59 23:59 23:59 23:59 Intake Total 100 100 100 Output Total 250 300 300 Balance -150 -200 -200 Meds/Results Medications: Active Medications Generic Name Dose Route Start Last Admin Trade Name Freq PRN Reason Stop Dose Admin Artificial Tears 1 drop 03/06/19 20:36 03/13/19 16:01 Artificial Tears EACH EYE 1 drop PRN PRN Administration Dry Eye(s) Bisacodyl 10 mg 03/06/19 20:37 Dulcolax Suppository RECTAL QAM PRN Constipation Glycopyrrolate 0.1 mg 03/06/19 20:37 Robinul Inj IV PUSH Q4H PRN INCREASED SECRETIONS Morphine Sulfate 50 mg/ Sodium 100 mls @ 4 mls/hr 03/12/19 06:00 03/15/19 07:59 Chloride IV CONT 2 mg/hr .Q24H PRATIK 4 mls/hr Administration 2 MG/HR Lorazepam 1 mg 03/06/19 20:38 03/10/19 09:41 Ativan Inj IV PUSH 1 mg Q4H PRN Administration Anxiety Morphine Sulfate 1 mg 03/06/19 20:38 Morphine Sulfate Inj IV PUSH Q1H PRN PAIN/SOB Prochlorperazine Edisylate 10 mg 03/06/19 20:37 Compazine IV PUSH Q6H PRN Nausea And Vomiting
[2019-03-15 20:00] VITALS: BP 103/65; PULSE 77; RESP 16; TEMP 35.8; O2SAT 96
[2019-03-16 06:00] VITALS: BP 122/85; PULSE 57; RESP 16; TEMP 36.4; O2SAT 94
[2019-03-16 08:00] VITALS: BP 122/74; PULSE 57; PULSE 58; RESP 12; RESP 16; O2SAT 94; O2SAT 98
--- NOTE | 2019-03-16 11:54 | PM.IMPN ---
Progress Note: A&P Assessment and Plan (1) Palliative care by specialist: Code(s): Z51.5 - Encounter for palliative care Status: Acute Assessment and Plan: Qualifies for GIP due to uncontrolled pain and agitation 03/06 03/07 Continues to require morphine drip for comfort 03/08 Continues to require morphine drip for comfort 03/11 restlessness observed by me. Increase morphine to 2mg/hr. 2 continues to require iv morphine drip for comfort, currently 2mg/hr 2/ continues to require iv morphine 2/ continues to require IV morphine 2/ continues to require iv morphine, respirations as low as 3 per min, imminent 2 continue to require iv morphine for symptom control, appears imminent (2) Metabolic encephalopathy: Code(s): G93.41 - Metabolic encephalopathy Status: Acute (3) Hypothyroid: Qualifiers: Hypothyroidism type: unspecified Qualified Code(s): E03.9 - Hypothyroidism, unspecified Code(s): E03.9 - Hypothyroidism, unspecified Status: Acute (4) Dysphagia: Qualifiers: Dysphagia type: unspecified Qualified Code(s): R13.10 - Dysphagia, unspecified Code(s): R13.10 - Dysphagia, unspecified Status: Acute (5) Rhabdomyolysis: Qualifiers: Encounter type: subsequent encounter Rhabdomyolysis type: traumatic Qualified Code(s): T79.6XXD - Traumatic ischemia of muscle, subsequent encounter Code(s): M62.82 - Rhabdomyolysis Status: Acute (6) Protein calorie malnutrition: Qualifiers: Protein-calorie malnutrition severity: unspecified severity Qualified Code(s): E46 - Unspecified protein-calorie malnutrition Code(s): E46 - Unspecified protein-calorie malnutrition Status: Acute (7) CAD (coronary artery disease): Qualifiers: Coronary Disease-Associated Artery/Lesion type: [place] artery [place] vs. transplanted heart: [place] heart Associated angina: without angina Qualified Code(s): I25.10 - Atherosclerotic heart disease of [place] coronary artery without angina pectoris Code(s): I25.10 - Atherosclerotic heart disease of [place] coronary artery without angina pectoris Status: Acute Subjective Date/time seen: 03/16/19 10:55 Interval history: nonverbal Exam Narrative: Exam Narrative: neck no jvd chest coarse bs abd scaphoid, soft with hypoactive bs extr no edema, warm cn grossly intact Objective Data Vital Signs Vital Signs: Vital Signs - 24 hr 03/15/19 20:00 03/16/19 06:00 03/16/19 08:00 Temperature 96.4 F L 97.6 F Pulse Rate 77 57 L 58 L Respiratory Rate 16 16 12 Blood Pressure 103/65 122/85 122/74 Pulse Oximetry 96 94 98 Intake/Output Intake/Output: Intake & Output 03/13/19 03/14/19 03/15/19 03/16/19 23:59 23:59 23:59 23:59 Intake Total 100 100 85 Output Total 300 650 400 Balance -200 -550 -315 Meds/Results Medications: Active Medications Generic Name Dose Route Start Last Admin Trade Name Freq PRN Reason Stop Dose Admin Artificial Tears 1 drop 03/06/19 20:36 03/13/19 16:01 Artificial Tears EACH EYE 1 drop PRN PRN Administration Dry Eye(s) Bisacodyl 10 mg 03/06/19 20:37 Dulcolax Suppository RECTAL QAM PRN Constipation Glycopyrrolate 0.1 mg 03/06/19 20:37 Robinul Inj IV PUSH Q4H PRN INCREASED SECRETIONS Morphine Sulfate 50 mg/ Sodium 100 mls @ 4 mls/hr 03/12/19 06:00 03/16/19 06:48 Chloride IV CONT 2 mg/hr .Q24H PRATIK 4 mls/hr Administration 2 MG/HR Lorazepam 1 mg 03/06/19 20:38 03/10/19 09:41 Ativan Inj IV PUSH 1 mg Q4H PRN Administration Anxiety Morphine Sulfate 1 mg 03/06/19 20:38 Morphine Sulfate Inj IV PUSH Q1H PRN PAIN/SOB Prochlorperazine Edisylate 10 mg 03/06/19 20:37 Compazine IV PUSH Q6H PRN Nausea And Vomiting
[2019-03-16 20:00] VITALS: BP 104/65; PULSE 49; RESP 7; TEMP 35.9; O2SAT 100
[2019-03-17 07:57] VITALS: PULSE 49; RESP 7; O2SAT 100
[2019-03-17 08:00] VITALS: BP 99/66; PULSE 49; RESP 2; TEMP 35.8; O2SAT 98
--- NOTE | 2019-03-17 10:19 | P.PNIM_ITS ---
Progress Note: A&P Assessment and Plan (1) Palliative care by specialist: Code(s): Z51.5 - Encounter for palliative care Status: Acute Assessment and Plan: * Qualifies for GIP due to uncontrolled pain and agitation 03/06 * 03/07 Continues to require morphine drip for comfort * 03/08 Continues to require morphine drip for comfort * 03/11 restlessness observed by me. Increase morphine to 2mg/hr. * 03/12 continues to require iv morphine drip for comfort, currently 2mg/hr * 2/2 continues to require iv morphine * 2/3 continues to require IV morphine * 2/4 continues to require iv morphine, respirations as low as 3 per min, imminent * 2/5 continue to require iv morphine for symptom control, appears imminent * 2/6 awake, but anticipate rapid decline, continue iv meds, d/w son and daughter at bedside (2) Metabolic encephalopathy: Code(s): G93.41 - Metabolic encephalopathy Status: Acute (3) Hypothyroid: Qualifiers: Hypothyroidism type: unspecified Qualified Code(s): E03.9 - Hypothyroidism, unspecified Code(s): E03.9 - Hypothyroidism, unspecified Status: Acute (4) Dysphagia: Qualifiers: Dysphagia type: unspecified Qualified Code(s): R13.10 - Dysphagia, unspecified Code(s): R13.10 - Dysphagia, unspecified Status: Acute (5) Rhabdomyolysis: Qualifiers: Encounter type: subsequent encounter Rhabdomyolysis type: traumatic Qualified Code(s): T79.6XXD - Traumatic ischemia of muscle, subsequent encounter Code(s): M62.82 - Rhabdomyolysis Status: Acute (6) Protein calorie malnutrition: Qualifiers: Protein-calorie malnutrition severity: unspecified severity Qualified Code(s): E46 - Unspecified protein-calorie malnutrition Code(s): E46 - Unspecified protein-calorie malnutrition Status: Acute (7) CAD (coronary artery disease): Qualifiers: Coronary Disease-Associated Artery/Lesion type: [place] artery [place] vs. transplanted heart: [place] heart Associated angina: without angina Qualified Code(s): I25.10 - Atherosclerotic heart disease of [place] coronary artery without angina pectoris Code(s): I25.10 - Atherosclerotic heart disease of [place] coronary artery without angina pectoris Status: Acute Subjective Date/time seen: 03/17/19 10:00 Interval history: 2/6 Much more alert. Nodding head appropriately. Interacting with family at bedside. Review of Systems Review of Systems: ROS unobtainable: unobtainable due to mental condition Exam Narrative: Exam Narrative: neck no jvd chest coarse bs abd scaphoid, soft with hypoactive bs extr no edema, warm cn grossly intact Objective Data Vital Signs Vital Signs: Vital Signs - 24 hr 03/16/19 20:00 03/17/19 07:57 03/17/19 08:00 Temperature 96.6 F L 96.5 F L Pulse Rate 49 L 49 L 49 L Respiratory Rate 7 L 7 L 2 L Blood Pressure 104/65 99/66 L Pulse Oximetry 100 100 98 Intake/Output Intake/Output: Intake & Output 03/14/19 03/15/19 03/16/19 03/17/19 23:59 23:59 23:59 23:59 Intake Total 100 100 85 90 Output Total 300 650 600 Balance -200 -737 -348 90 Meds/Results Medications: Active Medications Generic Name Dose Route Start Last Admin Trade Name Freq PRN Reason Stop Dose Admin
--- NOTE | 2019-03-17 10:19 | PM.IMPN ---
Progress Note: A&P Assessment and Plan (1) Palliative care by specialist: Code(s): Z51.5 - Encounter for palliative care Status: Acute Assessment and Plan: Qualifies for GIP due to uncontrolled pain and agitation 03/06 03/07 Continues to require morphine drip for comfort 03/08 Continues to require morphine drip for comfort 03/11 restlessness observed by me. Increase morphine to 2mg/hr. 03/12 continues to require iv morphine drip for comfort, currently 2mg/hr 2 continues to require iv morphine 2/ continues to require IV morphine 2/ continues to require iv morphine, respirations as low as 3 per min, imminent 03/16 continue to require iv morphine for symptom control, appears imminent 03/17 awake, but anticipate rapid decline, continue iv meds, d/w son and daughter at bedside (2) Metabolic encephalopathy: Code(s): G93.41 - Metabolic encephalopathy Status: Acute (3) Hypothyroid: Qualifiers: Hypothyroidism type: unspecified Qualified Code(s): E03.9 - Hypothyroidism, unspecified Code(s): E03.9 - Hypothyroidism, unspecified Status: Acute (4) Dysphagia: Qualifiers: Dysphagia type: unspecified Qualified Code(s): R13.10 - Dysphagia, unspecified Code(s): R13.10 - Dysphagia, unspecified Status: Acute (5) Rhabdomyolysis: Qualifiers: Encounter type: subsequent encounter Rhabdomyolysis type: traumatic Qualified Code(s): T79.6XXD - Traumatic ischemia of muscle, subsequent encounter Code(s): M62.82 - Rhabdomyolysis Status: Acute (6) Protein calorie malnutrition: Qualifiers: Protein-calorie malnutrition severity: unspecified severity Qualified Code(s): E46 - Unspecified protein-calorie malnutrition Code(s): E46 - Unspecified protein-calorie malnutrition Status: Acute (7) CAD (coronary artery disease): Qualifiers: Coronary Disease-Associated Artery/Lesion type: [place] artery [place] vs. transplanted heart: [place] heart Associated angina: without angina Qualified Code(s): I25.10 - Atherosclerotic heart disease of [place] coronary artery without angina pectoris Code(s): I25.10 - Atherosclerotic heart disease of [place] coronary artery without angina pectoris Status: Acute Subjective Date/time seen: 03/17/19 10:00 Interval history: 2/6 Much more alert. Nodding head appropriately. Interacting with family at bedside. Review of Systems Review of Systems: ROS unobtainable: unobtainable due to mental condition Exam Narrative: Exam Narrative: neck no jvd chest coarse bs abd scaphoid, soft with hypoactive bs extr no edema, warm cn grossly intact Objective Data Vital Signs Vital Signs: Vital Signs - 24 hr 03/16/19 20:00 03/17/19 07:57 03/17/19 08:00 Temperature 96.6 F L 96.5 F L Pulse Rate 49 L 49 L 49 L Respiratory Rate 7 L 7 L 2 L Blood Pressure 104/65 99/66 L Pulse Oximetry 100 100 98 Intake/Output Intake/Output: Intake & Output 03/14/19 03/15/19 03/16/19 03/17/19 23:59 23:59 23:59 23:59 Intake Total 100 100 85 90 Output Total 300 650 600 Balance -200 -550 -515 90 Meds/Results Medications: Active Medications Generic Name Dose Route Start Last Admin Trade Name Freq PRN Reason Stop Dose Admin Artificial Tears 1 drop 03/06/19 20:36 03/13/19 16:01 Artificial Tears EACH EYE 1 drop PRN PRN Administration Dry Eye(s) Bisacodyl 10 mg 03/06/19 20:37 Dulcolax Suppository RECTAL QAM PRN Constipation Glycopyrrolate 0.1 mg 03/06/19 20:37 Robinul Inj IV PUSH Q4H PRN INCREASED SECRETIONS Morphine Sulfate 50 mg/ Sodium 100 mls @ 4 mls/hr 03/12/19 06:00 03/17/19 06:17 Chloride IV CONT 2 mg/hr .Q24H PRATIK 4 mls/hr Administration 2 MG/HR Lorazepam 1 mg 03/06/19 20:38 03/10/19 09:41 Ativan Inj IV PUSH 1 mg Q4H PRN Administration Anxiety Prochlorperazine [place]
[2019-03-17 20:00] VITALS: BP 100/50; PULSE 60; RESP 6; O2SAT 99
--- NOTE | 2019-03-18 08:17 | PM.IMPN ---
Progress Note: A&P Assessment and Plan (1) Palliative care by specialist: Code(s): Z51.5 - Encounter for palliative care Status: Acute Assessment and Plan: Qualifies for GIP due to uncontrolled pain and agitation 03/06 03/07 Continues to require morphine drip for comfort 03/08 Continues to require morphine drip for comfort 03/11 restlessness observed by me. Increase morphine to 2mg/hr. 03/12 continues to require iv morphine drip for comfort, currently 2mg/hr 2 continues to require iv morphine 2 continues to require IV morphine 2 continues to require iv morphine, respirations as low as 3 per min, imminent 03/16 continue to require iv morphine for symptom control, appears imminent 03/17 awake, but anticipate rapid decline, continue iv meds, d/w son and daughter at bedside 03/18, continues to require iv morphine for sx control (2) Metabolic encephalopathy: Code(s): G93.41 - Metabolic encephalopathy Status: Acute (3) Hypothyroid: Qualifiers: Hypothyroidism type: unspecified Qualified Code(s): E03.9 - Hypothyroidism, unspecified Code(s): E03.9 - Hypothyroidism, unspecified Status: Acute (4) Dysphagia: Qualifiers: Dysphagia type: unspecified Qualified Code(s): R13.10 - Dysphagia, unspecified Code(s): R13.10 - Dysphagia, unspecified Status: Acute (5) Rhabdomyolysis: Qualifiers: Encounter type: subsequent encounter Rhabdomyolysis type: traumatic Qualified Code(s): T79.6XXD - Traumatic ischemia of muscle, subsequent encounter Code(s): M62.82 - Rhabdomyolysis Status: Acute (6) Protein calorie malnutrition: Qualifiers: Protein-calorie malnutrition severity: unspecified severity Qualified Code(s): E46 - Unspecified protein-calorie malnutrition Code(s): E46 - Unspecified protein-calorie malnutrition Status: Acute (7) CAD (coronary artery disease): Qualifiers: Coronary Disease-Associated Artery/Lesion type: [place] artery [place] vs. transplanted heart: [place] heart Associated angina: without angina Qualified Code(s): I25.10 - Atherosclerotic heart disease of [place] coronary artery without angina pectoris Code(s): I25.10 - Atherosclerotic heart disease of [place] coronary artery without angina pectoris Status: Acute Subjective Date/time seen: 03/18/19 07:55 Interval history: more drowsy today Exam Narrative: Exam Narrative: neck no jvd chest coarse bs abd scaphoid, soft with hypoactive bs extr no edema, warm cn grossly intact Objective Data Vital Signs Vital Signs: Vital Signs - 24 hr 03/17/19 20:00 Pulse Rate 60 Respiratory Rate 6 L Blood Pressure 100/50 L Pulse Oximetry 99 Intake/Output Intake/Output: Intake & Output 03/15/19 03/16/19 03/17/19 03/18/19 23:59 23:59 23:59 23:59 Intake Total 100 85 90 98 Output Total 650 600 Balance -550 -515 90 98 Meds/Results Medications: Active Medications Generic Name Dose Route Start Last Admin Trade Name Freq PRN Reason Stop Dose Admin Artificial Tears 1 drop 03/06/19 20:36 03/13/19 16:01 Artificial Tears EACH EYE 1 drop PRN PRN Administration Dry Eye(s) Bisacodyl 10 mg 03/06/19 20:37 Dulcolax Suppository RECTAL QAM PRN Constipation Glycopyrrolate 0.1 mg 03/06/19 20:37 Robinul Inj IV PUSH Q4H PRN INCREASED SECRETIONS Morphine Sulfate 50 mg/ Sodium 100 mls @ 4 mls/hr 03/12/19 06:00 03/18/19 06:15 Chloride IV CONT 2 mg/hr .Q24H PRATIK 4 mls/hr Administration 2 MG/HR Lorazepam 1 mg 03/06/19 20:38 03/10/19 09:41 Ativan Inj IV PUSH 1 mg Q4H PRN Administration Anxiety Prochlorperazine Edisylate 10 mg 03/06/19 20:37 Compazine IV PUSH Q6H PRN Nausea And Vomiting
[2019-03-18 08:40] VITALS: BP 90/59; PULSE 85; RESP 10; TEMP 35.8; O2SAT 91
[2019-03-18] MEDS: BISACODYL 10 MG SUPPOSITORY RECTAL (10:13)
[2019-03-18] MEDS: LORAZEPAM INJ 2 MG/ML VIAL 1 MG IV PUSH (10:13)
[2019-03-18 16:40] VITALS: BP 95/52; PULSE 98; RESP 4; TEMP 35.9; O2SAT 90
[2019-03-18 19:43] VITALS: BP 96/63; PULSE 59; RESP 8; TEMP 35.2; O2SAT 94
[2019-03-19 14:00] VITALS: BP 87/49; PULSE 41; RESP 6; TEMP 35.6; O2SAT 99
--- NOTE | 2019-03-19 14:46 | P.PNIM_ITS ---
Progress Note: A&P Assessment and Plan (1) Palliative care by specialist: Code(s): Z51.5 - Encounter for palliative care Status: Acute Assessment and Plan: * Qualifies for GIP due to uncontrolled pain and agitation 03/06 * 03/07 Continues to require morphine drip for comfort * 03/08 Continues to require morphine drip for comfort * 03/11 restlessness observed by me. Increase morphine to 2mg/hr. * 03/12 continues to require iv morphine drip for comfort, currently 2mg/hr * 2 continues to require iv morphine * 2/ continues to require IV morphine * 2 continues to require iv morphine, respirations as low as 3 per min, imminent * 2 continue to require iv morphine for symptom control, appears imminent * 03/17 awake, but anticipate rapid decline, continue iv meds, d/w son and daughter at bedside * 03/18, continues to require iv morphine for sx control * 03/19 continues to require iv morhpine for symptom control (2) Metabolic encephalopathy: Code(s): G93.41 - Metabolic encephalopathy Status: Acute (3) Hypothyroid: Qualifiers: Hypothyroidism type: unspecified Qualified Code(s): E03.9 - Hypothyroidism, unspecified Code(s): E03.9 - Hypothyroidism, unspecified Status: Acute (4) Dysphagia: Qualifiers: Dysphagia type: unspecified Qualified Code(s): R13.10 - Dysphagia, unspecified Code(s): R13.10 - Dysphagia, unspecified Status: Acute (5) Rhabdomyolysis: Qualifiers: Encounter type: subsequent encounter Rhabdomyolysis type: traumatic Qualified Code(s): T79.6XXD - Traumatic ischemia of muscle, subsequent encounter Code(s): M62.82 - Rhabdomyolysis Status: Acute (6) Protein calorie malnutrition: Qualifiers: Protein-calorie malnutrition severity: unspecified severity Qualified Code(s): E46 - Unspecified protein-calorie malnutrition Code(s): E46 - Unspecified protein-calorie malnutrition Status: Acute (7) CAD (coronary artery disease): Qualifiers: Coronary Disease-Associated Artery/Lesion type: [place] artery [place] vs. transplanted heart: [place] heart Associated angina: without angina Qualified Code(s): I25.10 - Atherosclerotic heart disease of [place] coronary artery without angina pectoris Code(s): I25.10 - Atherosclerotic heart disease of [place] coronary artery without angina pectoris Status: Acute Subjective Date/time seen: 03/19/19 09:10 Interval history: nonverbal, no interaction Review of Systems Review of Systems: ROS unobtainable: unobtainable due to mental status Exam Narrative: Exam Narrative: neck no jvd chest coarse bs abd scaphoid, soft with hypoactive bs extr no edema, warm cn grossly intact Objective Data Vital Signs Vital Signs: Vital Signs - 24 hr 03/18/19 16:40 03/18/19 19:43 Temperature 96.7 F L 95.4 F L Pulse Rate 98 59 L Respiratory Rate 4 L 8 L Blood Pressure 95/52 L 96/63 L Pulse Oximetry 90 94 Intake/Output Intake/Output: Intake & Output 03/16/19 03/17/19 03/18/19 03/19/19 23:59 23:59 23:59 23:59 Intake Total 85 90 98 100 Output Total 600 Balance -515 90 98 100 Meds/Results Medications: Active Medications Generic Name Dose Route Start Last Admin Trade Name Freq PRN Reason Stop Dose Ad
--- NOTE | 2019-03-19 14:46 | PM.IMPN ---
Progress Note: A&P Assessment and Plan (1) Palliative care by specialist: Code(s): Z51.5 - Encounter for palliative care Status: Acute Assessment and Plan: Qualifies for GIP due to uncontrolled pain and agitation 03/06 03/07 Continues to require morphine drip for comfort 03/08 Continues to require morphine drip for comfort 03/11 restlessness observed by me. Increase morphine to 2mg/hr. 03/12 continues to require iv morphine drip for comfort, currently 2mg/hr 03/13 continues to require iv morphine 03/14 continues to require IV morphine 03/15 continues to require iv morphine, respirations as low as 3 per min, imminent 03/16 continue to require iv morphine for symptom control, appears imminent 03/17 awake, but anticipate rapid decline, continue iv meds, d/w son and daughter at bedside 03/18, continues to require iv morphine for sx control 03/19 continues to require iv morhpine for symptom control (2) Metabolic encephalopathy: Code(s): G93.41 - Metabolic encephalopathy Status: Acute (3) Hypothyroid: Qualifiers: Hypothyroidism type: unspecified Qualified Code(s): E03.9 - Hypothyroidism, unspecified Code(s): E03.9 - Hypothyroidism, unspecified Status: Acute (4) Dysphagia: Qualifiers: Dysphagia type: unspecified Qualified Code(s): R13.10 - Dysphagia, unspecified Code(s): R13.10 - Dysphagia, unspecified Status: Acute (5) Rhabdomyolysis: Qualifiers: Encounter type: subsequent encounter Rhabdomyolysis type: traumatic Qualified Code(s): T79.6XXD - Traumatic ischemia of muscle, subsequent encounter Code(s): M62.82 - Rhabdomyolysis Status: Acute (6) Protein calorie malnutrition: Qualifiers: Protein-calorie malnutrition severity: unspecified severity Qualified Code(s): E46 - Unspecified protein-calorie malnutrition Code(s): E46 - Unspecified protein-calorie malnutrition Status: Acute (7) CAD (coronary artery disease): Qualifiers: Coronary Disease-Associated Artery/Lesion type: [place] artery [place] vs. transplanted heart: [place] heart Associated angina: without angina Qualified Code(s): I25.10 - Atherosclerotic heart disease of [place] coronary artery without angina pectoris Code(s): I25.10 - Atherosclerotic heart disease of [place] coronary artery without angina pectoris Status: Acute Subjective Date/time seen: 03/19/19 09:10 Interval history: nonverbal, no interaction Review of Systems Review of Systems: ROS unobtainable: unobtainable due to mental status Exam Narrative: Exam Narrative: neck no jvd chest coarse bs abd scaphoid, soft with hypoactive bs extr no edema, warm cn grossly intact Objective Data Vital Signs Vital Signs: Vital Signs - 24 hr 03/18/19 16:40 03/18/19 19:43 Temperature 96.7 F L 95.4 F L Pulse Rate 98 59 L Respiratory Rate 4 L 8 L Blood Pressure 95/52 L 96/63 L Pulse Oximetry 90 94 Intake/Output Intake/Output: Intake & Output 03/16/19 03/17/19 03/18/19 03/19/19 23:59 23:59 23:59 23:59 Intake Total 85 90 98 100 Output Total 600 Balance -515 90 98 100 Meds/Results Medications: Active Medications Generic Name Dose Route Start Last Admin Trade Name Freq PRN Reason Stop Dose Admin Artificial Tears 1 drop 03/06/19 20:36 03/19/19 09:57 Artificial Tears EACH EYE 1 drop PRN PRN Administration Dry Eye(s) Bisacodyl 10 mg 03/06/19 20:37 03/18/19 10:13 Dulcolax Suppository RECTAL 10 mg QAM PRN Administration Constipation Glycopyrrolate 0.1 mg 03/06/19 20:37 Robinul Inj IV PUSH Q4H PRN INCREASED SECRETIONS Morphine Sulfate 50 mg/ Sodium 100 mls @ 4 mls/hr 03/12/19 06:00 03/19/19 04:28 Chloride IV CONT 2 mg/hr .Q24H PRATIK 4 mls/hr Administration 2 MG/HR Lorazepam 1 mg 03/06/19 20:38 03/18/19 10:13 Ativan Inj IV PUSH 1 mg Q4H PRN Admini
[2019-03-19 21:20] VITALS: BP 80/38; PULSE 50; RESP 6; TEMP 35.3; O2SAT 100
--- NOTE | 2019-03-20 10:03 | P.PNIM_ITS ---
Progress Note: A&P Assessment and Plan (1) Palliative care by specialist: Code(s): Z51.5 - Encounter for palliative care Status: Acute Assessment and Plan: * Qualifies for GIP due to uncontrolled pain and agitation 03/06 * 03/07 Continues to require morphine drip for comfort * 03/08 Continues to require morphine drip for comfort * 03/11 restlessness observed by me. Increase morphine to 2mg/hr. * 03/12 continues to require iv morphine drip for comfort, currently 2mg/hr * 2 continues to require iv morphine * 2 continues to require IV morphine * 2 continues to require iv morphine, respirations as low as 3 per min, imminent * 03/16 continue to require iv morphine for symptom control, appears imminent * 03/17 awake, but anticipate rapid decline, continue iv meds, d/w son and daughter at bedside * 03/18, continues to require iv morphine for sx control * 03/19 continues to require iv morhpine for symptom control * 03/20 conitnues to require iv morphine for symptom control (2) Metabolic encephalopathy: Code(s): G93.41 - Metabolic encephalopathy Status: Acute (3) Hypothyroid: Qualifiers: Hypothyroidism type: unspecified Qualified Code(s): E03.9 - Hypothyroidism, unspecified Code(s): E03.9 - Hypothyroidism, unspecified Status: Acute (4) Dysphagia: Qualifiers: Dysphagia type: unspecified Qualified Code(s): R13.10 - Dysphagia, unspecified Code(s): R13.10 - Dysphagia, unspecified Status: Acute (5) Rhabdomyolysis: Qualifiers: Encounter type: subsequent encounter Rhabdomyolysis type: traumatic Qualified Code(s): T79.6XXD - Traumatic ischemia of muscle, subsequent encounter Code(s): M62.82 - Rhabdomyolysis Status: Acute (6) Protein calorie malnutrition: Qualifiers: Protein-calorie malnutrition severity: unspecified severity Qualified Code(s): E46 - Unspecified protein-calorie malnutrition Code(s): E46 - Unspecified protein-calorie malnutrition Status: Acute (7) CAD (coronary artery disease): Qualifiers: Associated angina: without angina Coronary Disease-Associated Artery/Lesion type: [place] artery [place] vs. transplanted heart: [place] heart Qualified Code(s): I25.10 - Atherosclerotic heart disease of [place] coronary artery without angina pectoris Code(s): I25.10 - Atherosclerotic heart disease of [place] coronary artery without angina pectoris Status: Acute Subjective Date/time seen: 03/20/19 08:30 Interval history: nonverbal, no interaction Review of Systems Review of Systems: ROS unobtainable: unobtainable due to mental status Exam Narrative: Exam Narrative: neck no jvd chest coarse bs abd scaphoid, soft with hypoactive bs extr no edema, warm cn grossly intact Objective Data Vital Signs Vital Signs: Vital Signs - 24 hr 03/19/19 14:00 03/19/19 21:20 Temperature 96.0 F L 95.6 F L Pulse Rate 41 L 50 L Respiratory Rate 6 L 6 L Blood Pressure 87/49 L 80/38 L Pulse Oximetry 99 100 Intake/Output Intake/Output: Intake & Output 03/17/19 03/18/19 03/19/19 03/20/19 23:59 23:59 23:59 23:59 Intake Total 90 98 100 100 Output Total 375 Balance 90 98 -275 100 Meds/Results Medications: Active Medications Generic Name Dose Route St
--- NOTE | 2019-03-20 10:03 | PM.IMPN ---
Progress Note: A&P Assessment and Plan (1) Palliative care by specialist: Code(s): Z51.5 - Encounter for palliative care Status: Acute Assessment and Plan: Qualifies for GIP due to uncontrolled pain and agitation 03/06 03/07 Continues to require morphine drip for comfort 03/08 Continues to require morphine drip for comfort 03/11 restlessness observed by me. Increase morphine to 2mg/hr. 03/12 continues to require iv morphine drip for comfort, currently 2mg/hr 03/13 continues to require iv morphine 03/14 continues to require IV morphine 03/15 continues to require iv morphine, respirations as low as 3 per min, imminent 03/16 continue to require iv morphine for symptom control, appears imminent 03/17 awake, but anticipate rapid decline, continue iv meds, d/w son and daughter at bedside 03/18, continues to require iv morphine for sx control 03/19 continues to require iv morhpine for symptom control 03/20 conitnues to require iv morphine for symptom control (2) Metabolic encephalopathy: Code(s): G93.41 - Metabolic encephalopathy Status: Acute (3) Hypothyroid: Qualifiers: Hypothyroidism type: unspecified Qualified Code(s): E03.9 - Hypothyroidism, unspecified Code(s): E03.9 - Hypothyroidism, unspecified Status: Acute (4) Dysphagia: Qualifiers: Dysphagia type: unspecified Qualified Code(s): R13.10 - Dysphagia, unspecified Code(s): R13.10 - Dysphagia, unspecified Status: Acute (5) Rhabdomyolysis: Qualifiers: Encounter type: subsequent encounter Rhabdomyolysis type: traumatic Qualified Code(s): T79.6XXD - Traumatic ischemia of muscle, subsequent encounter Code(s): M62.82 - Rhabdomyolysis Status: Acute (6) Protein calorie malnutrition: Qualifiers: Protein-calorie malnutrition severity: unspecified severity Qualified Code(s): E46 - Unspecified protein-calorie malnutrition Code(s): E46 - Unspecified protein-calorie malnutrition Status: Acute (7) CAD (coronary artery disease): Qualifiers: Associated angina: without angina Coronary Disease-Associated Artery/Lesion type: [place] artery [place] vs. transplanted heart: [place] heart Qualified Code(s): I25.10 - Atherosclerotic heart disease of [place] coronary artery without angina pectoris Code(s): I25.10 - Atherosclerotic heart disease of [place] coronary artery without angina pectoris Status: Acute Subjective Date/time seen: 03/20/19 08:30 Interval history: nonverbal, no interaction Review of Systems Review of Systems: ROS unobtainable: unobtainable due to mental status Exam Narrative: Exam Narrative: neck no jvd chest coarse bs abd scaphoid, soft with hypoactive bs extr no edema, warm cn grossly intact Objective Data Vital Signs Vital Signs: Vital Signs - 24 hr 03/19/19 14:00 03/19/19 21:20 Temperature 96.0 F L 95.6 F L Pulse Rate 41 L 50 L Respiratory Rate 6 L 6 L Blood Pressure 87/49 L 80/38 L Pulse Oximetry 99 100 Intake/Output Intake/Output: Intake & Output 03/17/19 03/18/19 03/19/19 03/20/19 23:59 23:59 23:59 23:59 Intake Total 90 98 100 100 Output Total 375 Balance 90 98 -275 100 Meds/Results Medications: Active Medications Generic Name Dose Route Start Last Admin Trade Name Freq PRN Reason Stop Dose Admin Artificial Tears 1 drop 03/06/19 20:36 03/20/19 08:12 Artificial Tears EACH EYE 1 drop PRN PRN Administration Dry Eye(s) Bisacodyl 10 mg 03/06/19 20:37 03/18/19 10:13 Dulcolax Suppository RECTAL 10 mg QAM PRN Administration Constipation Glycopyrrolate 0.1 mg 03/06/19 20:37 Robinul Inj IV PUSH Q4H PRN INCREASED SECRETIONS Morphine Sulfate 50 mg/ Sodium 100 mls @ 4 mls/hr 03/12/19 06:00 03/20/19 02:56 Chloride IV CONT 2 mg/hr .Q24H PRATIK 4 mls/hr Administration 2 MG/HR Lorazepam 1 mg 03/06/19 20:38 0
[2019-03-20 14:00] VITALS: BP 99/59; PULSE 48; RESP 8; TEMP 35.6; O2SAT 99
[2019-03-20 20:00] VITALS: BP 70/44; PULSE 42; RESP 8; TEMP 35.7; O2SAT 98
[2019-03-21 08:00] VITALS: PULSE 42; RESP 8; O2SAT 98
--- NOTE | 2019-03-21 09:57 | P.PNIM_ITS ---
Progress Note: A&P Assessment and Plan (1) Palliative care by specialist: Code(s): Z51.5 - Encounter for palliative care Status: Acute Assessment and Plan: * Qualifies for GIP due to uncontrolled pain and agitation 03/06 * 03/07 Continues to require morphine drip for comfort * 03/08 Continues to require morphine drip for comfort * 03/11 restlessness observed by me. Increase morphine to 2mg/hr. * 03/12 continues to require iv morphine drip for comfort, currently 2mg/hr * 2 continues to require iv morphine * 2/ continues to require IV morphine * 2 continues to require iv morphine, respirations as low as 3 per min, imminent * 2 continue to require iv morphine for symptom control, appears imminent * 03/17 awake, but anticipate rapid decline, continue iv meds, d/w son and daughter at bedside * 03/18 continues to require iv morphine for sx control * 03/19 continues to require iv morphine for symptom control * 03/20 continues to require iv morphine for symptom control * 03/21 continues to require iv morphine for symptom control (2) Metabolic encephalopathy: Code(s): G93.41 - Metabolic encephalopathy Status: Acute (3) Hypothyroid: Qualifiers: Hypothyroidism type: unspecified Qualified Code(s): E03.9 - Hypothyroidism, unspecified Code(s): E03.9 - Hypothyroidism, unspecified Status: Acute (4) Dysphagia: Qualifiers: Dysphagia type: unspecified Qualified Code(s): R13.10 - Dysphagia, unspecified Code(s): R13.10 - Dysphagia, unspecified Status: Acute (5) Rhabdomyolysis: Qualifiers: Encounter type: subsequent encounter Rhabdomyolysis type: traumatic Qualified Code(s): T79.6XXD - Traumatic ischemia of muscle, subsequent encounter Code(s): M62.82 - Rhabdomyolysis Status: Acute (6) Protein calorie malnutrition: Qualifiers: Protein-calorie malnutrition severity: unspecified severity Qualified Code(s): E46 - Unspecified protein-calorie malnutrition Code(s): E46 - Unspecified protein-calorie malnutrition Status: Acute (7) CAD (coronary artery disease): Qualifiers: Coronary Disease-Associated Artery/Lesion type: [place] artery [place] vs. transplanted heart: [place] heart Associated angina: without angina Qualified Code(s): I25.10 - Atherosclerotic heart disease of [place] coronary artery without angina pectoris Code(s): I25.10 - Atherosclerotic heart disease of [place] coronary artery without angina pectoris Status: Acute Subjective Date/time seen: 03/21/19 09:50 Interval history: nonverbal, no interaction Exam Narrative: Exam Narrative: neck no jvd chest coarse bs abd scaphoid, soft with hypoactive bs extr no edema, warm cn grossly intact Objective Data Vital Signs Vital Signs: Vital Signs - 24 hr 03/20/19 14:00 03/20/19 20:00 03/21/19 08:00 Temperature 96.1 F L 96.2 F L Pulse Rate 48 L 42 L 42 L Respiratory Rate 8 L 8 L 8 L Blood Pressure 99/59 L 70/44 L Pulse Oximetry 99 98 98 Intake/Output Intake/Output: Intake & Output 03/18/19 03/19/19 03/20/19 03/21/19 23:59 23:59 23:59 23:59 Intake Total 98 100 100 100 Output Total 375 Balance 98 -275 100 100 Meds/Results Medications: Active Medications Generic Name Dose Route Start Last Admin
--- NOTE | 2019-03-21 09:57 | PM.IMPN ---
Progress Note: A&P Assessment and Plan (1) Palliative care by specialist: Code(s): Z51.5 - Encounter for palliative care Status: Acute Assessment and Plan: Qualifies for GIP due to uncontrolled pain and agitation 03/06 03/07 Continues to require morphine drip for comfort 03/08 Continues to require morphine drip for comfort 03/11 restlessness observed by me. Increase morphine to 2mg/hr. 03/12 continues to require iv morphine drip for comfort, currently 2mg/hr 2 continues to require iv morphine 2 continues to require IV morphine 2 continues to require iv morphine, respirations as low as 3 per min, imminent 03/16 continue to require iv morphine for symptom control, appears imminent 03/17 awake, but anticipate rapid decline, continue iv meds, d/w son and daughter at bedside 03/18 continues to require iv morphine for sx control 03/19 continues to require iv morphine for symptom control 03/20 continues to require iv morphine for symptom control 03/21 continues to require iv morphine for symptom control (2) Metabolic encephalopathy: Code(s): G93.41 - Metabolic encephalopathy Status: Acute (3) Hypothyroid: Qualifiers: Hypothyroidism type: unspecified Qualified Code(s): E03.9 - Hypothyroidism, unspecified Code(s): E03.9 - Hypothyroidism, unspecified Status: Acute (4) Dysphagia: Qualifiers: Dysphagia type: unspecified Qualified Code(s): R13.10 - Dysphagia, unspecified Code(s): R13.10 - Dysphagia, unspecified Status: Acute (5) Rhabdomyolysis: Qualifiers: Encounter type: subsequent encounter Rhabdomyolysis type: traumatic Qualified Code(s): T79.6XXD - Traumatic ischemia of muscle, subsequent encounter Code(s): M62.82 - Rhabdomyolysis Status: Acute (6) Protein calorie malnutrition: Qualifiers: Protein-calorie malnutrition severity: unspecified severity Qualified Code(s): E46 - Unspecified protein-calorie malnutrition Code(s): E46 - Unspecified protein-calorie malnutrition Status: Acute (7) CAD (coronary artery disease): Qualifiers: Coronary Disease-Associated Artery/Lesion type: [place] artery [place] vs. transplanted heart: [place] heart Associated angina: without angina Qualified Code(s): I25.10 - Atherosclerotic heart disease of [place] coronary artery without angina pectoris Code(s): I25.10 - Atherosclerotic heart disease of [place] coronary artery without angina pectoris Status: Acute Subjective Date/time seen: 03/21/19 09:50 Interval history: nonverbal, no interaction Exam Narrative: Exam Narrative: neck no jvd chest coarse bs abd scaphoid, soft with hypoactive bs extr no edema, warm cn grossly intact Objective Data Vital Signs Vital Signs: Vital Signs - 24 hr 03/20/19 14:00 03/20/19 20:00 03/21/19 08:00 Temperature 96.1 F L 96.2 F L Pulse Rate 48 L 42 L 42 L Respiratory Rate 8 L 8 L 8 L Blood Pressure 99/59 L 70/44 L Pulse Oximetry 99 98 98 Intake/Output Intake/Output: Intake & Output 03/18/19 03/19/19 03/20/19 03/21/19 23:59 23:59 23:59 23:59 Intake Total 98 100 100 100 Output Total 375 Balance 98 -275 100 100 Meds/Results Medications: Active Medications Generic Name Dose Route Start Last Admin Trade Name Freq PRN Reason Stop Dose Admin Artificial Tears 1 drop 03/06/19 20:36 03/20/19 08:12 Artificial Tears EACH EYE 1 drop PRN PRN Administration Dry Eye(s) Bisacodyl 10 mg 03/06/19 20:37 03/18/19 10:13 Dulcolax Suppository RECTAL 10 mg QAM PRN Administration Constipation Glycopyrrolate 0.1 mg 03/06/19 20:37 Robinul Inj IV PUSH Q4H PRN INCREASED SECRETIONS Morphine Sulfate 50 mg/ Sodium 100 mls @ 4 mls/hr 03/12/19 06:00 03/21/19 02:04 Chloride IV CONT 2 mg/hr .Q24H PRATIK 4 mls/hr Administration 2 MG/HR Lorazepam 1 mg 03/06/19 20:38
[2019-03-21 14:00] VITALS: BP 90/58; PULSE 66; RESP 5; TEMP 34.8; O2SAT 100
--- NOTE | 2019-03-21 15:52 | PCCCNOTE ---
On 03/21/19, the student, [Jyoti Hudson ], provided care and completed [facility] documentation on this patient. I have reviewed the student's documentation and agree with the findings.
[2019-03-21 20:00] VITALS: PULSE 82; RESP 16; O2SAT 96
[2019-03-21 21:38] VITALS: BP 96/54; PULSE 82; RESP 16; TEMP 37.4; O2SAT 96
--- NOTE | 2019-03-22 02:19 | PC.NURSE ---
Making rounds found pt with no respirations and no pulse.
--- NOTE | 2019-03-23 07:41 | PC.NURSE ---
Jasen from [facility] contacted at and notified of patient expiration and family request for their services. Jasen reports they will be coming to the hospital today for release of body.
--- NOTE | 2019-04-07 12:03 | PM.DDS ---
Discharge Sum: Prov Provider Primary care physician: [facility] Admitting provider: Tony Hancock MD Discharge Sum: Diag Contributing Factors (1) CAD (coronary artery disease): (2) Protein calorie malnutrition: (3) Metabolic encephalopathy: (4) AR (acute kidney injury): (5) Hypothyroid: (6) Hypothyroid coma: Discharge Sum: Summary Date and Time Date of admission: 03/06/19 19:35 Summary Details: Admitted for inpatient palliative care/hospice. Medications were titrated to comfort. After a prolonged inpatient course, he peacefully. Additional Data Attending physician: Tony Hancock MD
== END 2019-03-22 05:27 | disposition expired | DRG 70 ==
PROVIDERS: Admitting Provider Internal Medicine; Visit Provider Internal Medicine
DX: G93.41 Metabolic encephalopathy (principal); E03.5 Myxedema coma; E46 Unspecified protein-calorie malnutrition; Z51.5 Encounter for palliative care; E03.9 Hypothyroidism, unspecified; R13.10 Dysphagia, unspecified; T79.6XXA Traumatic ischemia of muscle, initial encounter; I25.10 Atherosclerotic heart disease of native coronary artery without angina pectoris; Z98.49 Cataract extraction status, unspecified eye; K21.9 Gastro-esophageal reflux disease without esophagitis; Z66 Do not resuscitate; Z87.891 Personal history of nicotine dependence
CPT/HCPCS: A9270; J2060; J2270